=== PATIENT | male | born 1960 | race Caucasian/White ===

== ENCOUNTER 2018-09-23 17:46 | Inpatient (IN) | payer MEDICAID, OTHER ==
[~2018-09-23] VITALS: Ht 177.8 cm; Wt 73.6 kg
[~2018-09-23 17:46] MED LIST: ATEN100T PO; GABA-533 PO; LEVE500T53 PO
[2018-09-23 18:57] LABS: BASOPHILS % (AUTO) 0.8 % (0.0-2.0); EOSINOPHILS % (AUTO) 0.5 % (1.0-6.0); HEMATOCRIT 42.3 % (41-53); HEMOGLOBIN 13.9 g/dL (13.5-17.5); LYMPHOCYTES # (AUTO) 1.5 K/uL (1.0-4.8); LYMPHOCYTES % (AUTO) 22.2 % (22.0-44.0); MEAN CORPUSCULAR HEMOGLOBIN 30.8 pg (26.0-34.0); MEAN CORPUSCULAR HGB CONC 32.7 G/dL (31.0-37.0); MEAN CORPUSCULAR VOLUME 94 fL (80-100); MONOCYTES # (AUTO) 0.3 K/uL (0.1-1.0); MONOCYTES % (AUTO) 4.9 % (2.0-9.0); NEUTROPHILS # (AUTO) 4.9 K/uL (1.8-7.7); NEUTROPHILS % (AUTO) 71.6 % (40.0-70.0); PLATELET COUNT (AUTO) 336 K/uL (150-450); RED BLOOD CELL COUNT(AUTO) 4.49 MIL/uL (4.50-5.90); RED CELL DISTRIBUTION WIDTH 15.1 % (11.5-14.5)
[2018-09-23 19:09] LABS: ANION GAP 11 mmol/L (8-16); CALCIUM, TOTAL 9.4 mg/dL (8.8-10.5); CARBON DIOXIDE 27 mmol/L (22-29); CHLORIDE 104 mmol/L (98-107); CREATININE 0.83 mg/dL (0.60-1.30); GLOMERULAR FILTR. RATE CALC > 60 mL/min (>60); GLUCOSE,RANDOM 74 mg/dL (70-110); POTASSIUM 3.7 mmol/L (3.5-5.1); SODIUM SERUM 142 mmol/L (136-145); UREA NITROGEN, BLOOD 14 mg/dL (7-18)
[2018-09-23 19:15] LABS: ALANINE AMINOTRANSFERASE 26 U/L (12-78); ALBUMIN 3.6 g/dL (3.4-5.0); ALKALINE PHOSPHATASE 100 U/L (46-116); ASPARTATE AMINOTRANSFERASE 51 U/L (15-37); BILIRUBIN,TOTAL 0.4 mg/dL (0.1-1.0); TOTAL PROTEIN, SERUM 8.2 g/dL (6.4-8.2)
[2018-09-23 20:48] LABS: AMPHET/METH SCREEN,URINE NEGATIVE (NEGATIVE); BARBITURATE SCREEN, URINE NEGATIVE (NEGATIVE); BENZODIAZEPINES SCREEN,URINE POSITIVE (NEGATIVE); CANNABINOID SCREEN,URINE NEGATIVE (NEGATIVE); COCAINE SCREEN,URINE NEGATIVE (NEGATIVE); METHADONE SCREEN, URINE NEGATIVE (NEGATIVE); OPIATE SCREEN,URINE POSITIVE (NEGATIVE)
[2018-09-23 20:53] LABS: PHENCYCLIDINE SCREEN,URINE NEGATIVE (NEGATIVE)
[2018-09-24] MEDS ORDERED: ChlordiazePOXIDE HCL 25 MG CAPSULE PO ONE (09:15)
[2018-09-24] MEDS ORDERED: MAGNESIUM SULFATE 2 GM, MVI, ADULT NO.1 WITH VIT K 10 ML, THIAMINE HCL 100 MG, FOLIC AC... IV ONE ×5 (09:15)
[2018-09-24] MEDS ORDERED: SODIUM CHLORIDE 0.9% 1,000 ML IV ONE (09:15)
[2018-09-24] MEDS ORDERED: LevETIRAcetam 1,000 MG in DEXTROSE 5%-WATER 100 ML IV ONE (09:45)
[2018-09-24] MEDS ORDERED: HYDROCODONE/ACETAMINOPHEN 5-325 MG TABLET PO ONE (09:45)
[2018-09-24] MEDS ORDERED: GABAPENTIN 100 MG CAPSULE PO ONE (09:45)
[2018-09-24] MEDS ORDERED: ZOLPIDEM TARTRATE 10 MG TABLET PO PRN (12:15)
[2018-09-24] MEDS ORDERED: LORazepam 2 MG TABLET PO PRN ×2 (12:15→14:45)
[2018-09-24 14:36] VITALS: BP 141/99
[2018-09-24 14:42] VITALS: BP 141/99
[2018-09-24] MEDS ORDERED: LOPERAMIDE HCL 2 MG CAPSULE PO PRN (14:45)
[2018-09-24] MEDS ORDERED: CYANOCOBALAMIN 1,000 MCG/ML VIAL IM ONE (16:00)
[2018-09-24 16:33] VITALS: BP 141/88
[2018-09-24] MEDS: MULTIVITAMINS WITH MINERALS, THERAPEUTIC TABLET PO SCH (16:42)
[2018-09-24] MEDS: LevETIRAcetam 500 MG TABLET PO SCH (16:42)
[2018-09-24] MEDS: THIAMINE HCL 100 MG TABLET PO SCH (16:42)
[2018-09-24] MEDS: GABAPENTIN 400 MG CAPSULE PO SCH ×2 (16:42→20:36)
[2018-09-24] MEDS: FOLIC ACID 1 MG TABLET PO SCH (16:42)
[2018-09-24 16:44] VITALS: BP 141/88
[2018-09-24 18:33] VITALS: BP 146/84
[2018-09-25 02:44] VITALS: BP 151/101
[2018-09-25 06:36] VITALS: BP 133/98
[2018-09-25] MEDS ORDERED: LORazepam 2 MG TABLET PO PRN (07:00)
[2018-09-25 07:29] LABS: CHOL/HDL RATIO 1.8 (4.2-7.3); FREE T4 (FREE THYROXINE) 1.08 ng/dL (0.76-1.46); THYROID STIMULATING HORMONE 0.83 uIU/mL (0.36-3.74)
[2018-09-25] MEDS: LORazepam 2 MG TABLET PO SCH ×4 (08:24→21:24)
[2018-09-25] MEDS: LevETIRAcetam 500 MG TABLET PO SCH (08:24)
[2018-09-25] MEDS: MULTIVITAMINS WITH MINERALS, THERAPEUTIC TABLET PO SCH (08:24)
[2018-09-25] MEDS: GABAPENTIN 400 MG CAPSULE PO SCH ×4 (08:24→21:24)
[2018-09-25] MEDS: THIAMINE HCL 100 MG TABLET PO SCH ×2 (08:25→16:40)
[2018-09-25] MEDS: ATENOLOL 100 MG TABLET PO SCH (08:38)
[2018-09-25] MEDS: ESCITALOPRAM OXALATE 10 MG TABLET PO SCH (08:40)
[2018-09-25] MEDS: FOLIC ACID 1 MG TABLET PO SCH (08:40)
[2018-09-25 10:35] VITALS: BP 117/77
[2018-09-25 10:38] VITALS: BP 117/71
[2018-09-25 14:45] VITALS: BP 149/94
[2018-09-25 16:11] VITALS: BP 140/88
[2018-09-26 03:13] VITALS: BP 139/95
[2018-09-26] MEDS: THIAMINE HCL 100 MG TABLET PO SCH ×2 (08:36→17:29)
[2018-09-26] MEDS: GABAPENTIN 400 MG CAPSULE PO SCH ×4 (08:36→20:45)
[2018-09-26] MEDS: MULTIVITAMINS WITH MINERALS, THERAPEUTIC TABLET PO SCH (08:36)
[2018-09-26] MEDS: FOLIC ACID 1 MG TABLET PO SCH (08:37)
[2018-09-26] MEDS: LevETIRAcetam 500 MG TABLET PO SCH (08:37)
[2018-09-26] MEDS: LORazepam 2 MG TABLET PO SCH ×4 (08:37→20:47)
[2018-09-26] MEDS: ESCITALOPRAM OXALATE 10 MG TABLET PO SCH (08:37)
[2018-09-26] MEDS: ATENOLOL 100 MG TABLET PO SCH (08:37)
[2018-09-26 11:00] VITALS: BP 142/89
[2018-09-26 11:08] VITALS: BP 142/89
[2018-09-26 16:57] VITALS: BP 119/97
[2018-09-26 16:59] VITALS: BP 119/97
[2018-09-27] MEDS ORDERED: LORazepam 1 MG TABLET PO PRN (07:00)
[2018-09-27 09:05] VITALS: BP 142/87
[2018-09-27 09:06] VITALS: BP 142/87
[2018-09-27] MEDS: ATENOLOL 100 MG TABLET PO SCH (09:31)
[2018-09-27] MEDS: ESCITALOPRAM OXALATE 10 MG TABLET PO SCH (09:31)
[2018-09-27] MEDS: THIAMINE HCL 100 MG TABLET PO SCH ×2 (09:31→16:37)
[2018-09-27] MEDS: MULTIVITAMINS WITH MINERALS, THERAPEUTIC TABLET PO SCH (09:32)
[2018-09-27] MEDS: FOLIC ACID 1 MG TABLET PO SCH (09:32)
[2018-09-27] MEDS: LORazepam 1 MG TABLET PO SCH ×4 (09:33→20:34)
[2018-09-27] MEDS: GABAPENTIN 400 MG CAPSULE PO SCH ×4 (09:33→21:40)
[2018-09-27] MEDS: LevETIRAcetam 500 MG TABLET PO SCH (09:33)
[2018-09-27 16:35] VITALS: BP 147/89
[2018-09-27] MEDS ORDERED: ONDANSETRON HCL 4 MG TABLET PO PRN (21:00)
[2018-09-27] MEDS ORDERED: ACETAMINOPHEN 325 MG TABLET PO PRN (21:00)
[2018-09-27] MEDS ORDERED: MAGNESIUM HYDROXIDE SUSPENSION 30 ML UDCUP PO PRN (21:00)
[2018-09-27] MEDS ORDERED: LOPERAMIDE HCL 2 MG CAPSULE PO PRN (21:00)
[2018-09-27] MEDS ORDERED: CloNIDine HCL 0.1 MG TABLET PO PRN (21:00)
[2018-09-27] MEDS ORDERED: BACITRACIN 28.4 GM OINTMENT TP PRN (21:00)
[2018-09-27] MEDS ORDERED: BENZOCAINE/MENTHOL LOZENGE MM PRN (21:00)
[2018-09-27] MEDS ORDERED: ALBUTEROL SULFATE HFA 90 MCG/PUFF 8 GM INHALER IH PRN (21:00)
[2018-09-27] MEDS ORDERED: MAG HYDROX/AL HYDROX/SIMETH ES 30 ML SUSPENSION UDCUP PO PRN (21:00)
[2018-09-27] MEDS ORDERED: PETROLATUM,WHITE 28 GM JELLY TP PRN (21:00)
[2018-09-27 21:40] VITALS: BP 128/74
[2018-09-27] MEDS: IBUPROFEN 600 MG TABLET PO PRN (21:40)
[2018-09-28 06:58] VITALS: BP 124/84
[2018-09-28] MEDS ORDERED: LORazepam 1 MG TABLET PO PRN (07:00)
[2018-09-28] MEDS: MULTIVITAMINS WITH MINERALS, THERAPEUTIC TABLET PO SCH (08:05)
[2018-09-28] MEDS: ATENOLOL 100 MG TABLET PO SCH (08:05)
[2018-09-28] MEDS: GABAPENTIN 400 MG CAPSULE PO SCH ×4 (08:06→20:16)
[2018-09-28] MEDS: OMEPRAZOLE 20 MG CAPSULE PO SCH (08:06)
[2018-09-28] MEDS: LevETIRAcetam 500 MG TABLET PO SCH (08:07)
[2018-09-28] MEDS: ESCITALOPRAM OXALATE 10 MG TABLET PO SCH (08:07)
[2018-09-28] MEDS: FOLIC ACID 1 MG TABLET PO SCH (08:08)
[2018-09-28] MEDS: THIAMINE HCL 100 MG TABLET PO SCH ×2 (08:08→16:04)
[2018-09-28 08:10] VITALS: BP 149/92
[2018-09-28] MEDS: IBUPROFEN 600 MG TABLET PO PRN (08:10)
[2018-09-28] MEDS: DOCUSATE SODIUM 100 MG CAPSULE PO SCH (09:00)
[2018-09-28 12:43] VITALS: BP 144/87
[2018-09-28 16:00] VITALS: BP 125/75
[2018-09-29] MEDS: FOLIC ACID 1 MG TABLET PO SCH (08:53)
[2018-09-29] MEDS: LevETIRAcetam 500 MG TABLET PO SCH (08:53)
[2018-09-29] MEDS: GABAPENTIN 400 MG CAPSULE PO SCH ×4 (08:53→20:39)
[2018-09-29] MEDS: ATENOLOL 100 MG TABLET PO SCH (08:54)
[2018-09-29] MEDS: ESCITALOPRAM OXALATE 10 MG TABLET PO SCH (08:54)
[2018-09-29] MEDS: THIAMINE HCL 100 MG TABLET PO SCH ×2 (08:55→16:14)
[2018-09-29] MEDS: OMEPRAZOLE 20 MG CAPSULE PO SCH (08:56)
[2018-09-29] MEDS: MULTIVITAMINS WITH MINERALS, THERAPEUTIC TABLET PO SCH (08:56)
[2018-09-29] MEDS: HALOPERIDOL 5 MG TABLET PO PRN ×2 (09:00→16:14)
[2018-09-29] MEDS: DOCUSATE SODIUM 100 MG CAPSULE PO SCH (09:00)
[2018-09-29 09:11] VITALS: BP 134/90
[2018-09-29 09:13] VITALS: BP 134/90
[2018-09-29] MEDS ORDERED: ESCI10TA PO (18:59)
[2018-09-29 19:20] VITALS: BP 127/78
[2018-09-29] MEDS ORDERED: FOLI1 PO (19:22)
[2018-09-29] MEDS ORDERED: THIA100T67 PO (19:23)
[2018-09-29] MEDS ORDERED: MULT-248 PO (19:23)
[2018-09-29] MEDS ORDERED: DSS100 PO (19:26)
[2018-09-29] MEDS ORDERED: OMEP20 PO (19:27)
== END 2018-09-29 20:52 | DRG 751 ==
LOC: EMS 17:49 → 3EX 09-24 13:14
DX: F33.2 Major depressive disorder, recurrent severe without psychotic features (principal); R45.851 Suicidal ideations; G62.9 Polyneuropathy, unspecified; G89.29 Other chronic pain; F41.9 Anxiety disorder, unspecified; M54.9 Dorsalgia, unspecified; F10.20 Alcohol dependence, uncomplicated; M51.36 Other intervertebral disc degeneration, lumbar region; I10 Essential (primary) hypertension; G40.909 Epilepsy, unspecified, not intractable, without status epilepticus; G47.00 Insomnia, unspecified; K59.00 Constipation, unspecified; Y90.6 Blood alcohol level of 120-199 mg/100 ml; Z89.512 Acquired absence of left leg below knee; Z86.73 Personal history of transient ischemic attack (TIA), and cerebral infarction without residual deficits; Z79.899 Other long term (current) drug therapy; Z91.5 Personal history of self-harm; Z59.0 Homelessness
CPT/HCPCS: 84439; 84443; 96365; 96366; 97110; 97116; 97162; 97166; 97530; 97535; G0378; G0480; J0712; J3411; J3420; J3475; J3490; J7030; J7060

== ENCOUNTER 2019-01-11 19:39 | Inpatient (IN) | payer MEDICAID, OTHER ==
[~2019-01-11] VITALS: Ht 177.8 cm; Wt 67.5 kg
[~2019-01-11 19:39] MED LIST changes: +DSS100 PO; +ESCI10TA PO; +FOLI1 PO; +MULT-248 PO; +OMEP20 PO; +THIA100T67 PO
[2019-01-11] MEDS ORDERED: ATEN100T PO (19:54)
[2019-01-11 21:06] LABS: BASOPHILS % (AUTO) 0.7 % (0.0-2.0); EOSINOPHILS % (AUTO) 0.6 % (1.0-6.0); HEMATOCRIT 45.3 % (41-53); HEMOGLOBIN 15.1 g/dL (13.5-17.5); LYMPHOCYTES # (AUTO) 2.1 K/uL (1.0-4.8); LYMPHOCYTES % (AUTO) 43.6 % (22.0-44.0); MEAN CORPUSCULAR HEMOGLOBIN 30.2 pg (26.0-34.0); MEAN CORPUSCULAR HGB CONC 33.4 G/dL (31.0-37.0); MEAN CORPUSCULAR VOLUME 90 fL (80-100); MONOCYTES # (AUTO) 0.4 K/uL (0.1-1.0); MONOCYTES % (AUTO) 7.9 % (2.0-9.0); NEUTROPHILS # (AUTO) 2.3 K/uL (1.8-7.7); NEUTROPHILS % (AUTO) 47.2 % (40.0-70.0); RED BLOOD CELL COUNT(AUTO) 5.02 MIL/uL (4.50-5.90); RED CELL DISTRIBUTION WIDTH 15.2 % (11.5-14.5)
[2019-01-11 21:19] LABS: ANION GAP 9 mmol/L (8-16); CALCIUM, TOTAL 8.3 mg/dL (8.8-10.5); CARBON DIOXIDE 29 mmol/L (22-29); CHLORIDE 101 mmol/L (98-107); CREATININE 1.09 mg/dL (0.60-1.30); GLOMERULAR FILTR. RATE CALC > 60 mL/min (>60); GLUCOSE,RANDOM 92 mg/dL (70-110); POTASSIUM 3.4 mmol/L (3.5-5.1); SODIUM SERUM 139 mmol/L (136-145); UREA NITROGEN, BLOOD 11 mg/dL (7-18)
[2019-01-11 21:20] LABS: AMPHET/METH SCREEN,URINE NEGATIVE (NEGATIVE); BARBITURATE SCREEN, URINE NEGATIVE (NEGATIVE); BENZODIAZEPINES SCREEN,URINE NEGATIVE (NEGATIVE); CANNABINOID SCREEN,URINE NEGATIVE (NEGATIVE); COCAINE SCREEN,URINE NEGATIVE (NEGATIVE); METHADONE SCREEN, URINE NEGATIVE (NEGATIVE); OPIATE SCREEN,URINE NEGATIVE (NEGATIVE)
[2019-01-11 21:25] LABS: ALANINE AMINOTRANSFERASE 45 U/L (12-78); ALBUMIN 3.8 g/dL (3.4-5.0); ALKALINE PHOSPHATASE 119 U/L (46-116); ASPARTATE AMINOTRANSFERASE 82 U/L (15-37); BILIRUBIN,TOTAL 0.8 mg/dL (0.1-1.0); TOTAL PROTEIN, SERUM 7.5 g/dL (6.4-8.2)
[2019-01-11 21:29] LABS: PHENCYCLIDINE SCREEN,URINE NEGATIVE (NEGATIVE)
[2019-01-11 21:57] LABS: PLATELET COUNT (AUTO) 94 K/uL (150-450)
[2019-01-12 05:46] VITALS: BP 142/92
[2019-01-12] MEDS: LORazepam 2 MG TABLET PO PRN ×4 (05:56→21:13)
[2019-01-12] MEDS ORDERED: PNEUMOCOCCAL VACCINE POLYVALENT 0.5 ML VIAL [PPSV23] IM ONE (06:00)
[2019-01-12] MEDS ORDERED: LOPERAMIDE HCL 2 MG CAPSULE PO PRN ×2 (06:15→18:45)
[2019-01-12] MEDS ORDERED: ONDANSETRON HCL 4 MG TABLET PO PRN ×2 (06:15→18:45)
[2019-01-12] MEDS ORDERED: ACETAMINOPHEN 325 MG TABLET PO PRN ×2 (06:15→18:45)
[2019-01-12] MEDS ORDERED: DOCUSATE SODIUM 100 MG CAPSULE PO PRN ×2 (06:15→18:45)
[2019-01-12] MEDS ORDERED: IBUPROFEN 400 MG TABLET PO PRN (06:15)
[2019-01-12] MEDS ORDERED: MAGNESIUM HYDROXIDE SUSPENSION 30 ML UDCUP PO PRN ×2 (06:15→18:45)
[2019-01-12] MEDS ORDERED: GuaiFENesin/D-METHORPHAN [SUGAR-FREE] 200-20MG/10 ML SYRUP UDCUP PO PRN ×2 (06:15→18:45)
[2019-01-12] MEDS ORDERED: MAG HYDROX/AL HYDROX/SIMETH ES 30 ML SUSPENSION UDCUP PO PRN ×2 (06:15→18:45)
[2019-01-12] MEDS ORDERED: PETROLATUM,WHITE 28 GM JELLY TP PRN ×2 (06:15→18:45)
[2019-01-12] MEDS ORDERED: ALBUTEROL SULFATE HFA 90 MCG/PUFF 8 GM INHALER IH PRN ×2 (06:15→18:45)
[2019-01-12] MEDS ORDERED: CloNIDine HCL 0.1 MG TABLET PO PRN ×2 (06:15→18:45)
[2019-01-12] MEDS ORDERED: NICOTINE 14 MG/24 HOUR PATCH TD PRN ×2 (06:15→18:45)
[2019-01-12] MEDS ORDERED: LevETIRAcetam 500 MG TABLET PO SCH (09:00)
[2019-01-12] MEDS ORDERED: ATENOLOL 100 MG TABLET PO SCH (09:00)
[2019-01-12 09:49] VITALS: BP 126/74
[2019-01-12] MEDS: GABAPENTIN 400 MG CAPSULE PO SCH ×4 (10:03→21:11)
[2019-01-12] MEDS ORDERED: DOCU-275 PO (12:48)
[2019-01-12] MEDS: ESCITALOPRAM OXALATE 20 MG TABLET PO SCH (12:58)
[2019-01-12 16:30] VITALS: BP 107/78
[2019-01-12] MEDS: TraZODone HCL 50 MG TABLET PO SCH (21:11)
[2019-01-13 07:28] LABS: BASOPHILS % (AUTO) 0.3 % (0.0-2.0); EOSINOPHILS % (AUTO) 0.9 % (1.0-6.0); HEMATOCRIT 42.6 % (41-53); HEMOGLOBIN 14.2 g/dL (13.5-17.5); LYMPHOCYTES # (AUTO) 1.1 K/uL (1.0-4.8); LYMPHOCYTES % (AUTO) 19.6 % (22.0-44.0); MEAN CORPUSCULAR HEMOGLOBIN 30.4 pg (26.0-34.0); MEAN CORPUSCULAR HGB CONC 33.4 G/dL (31.0-37.0); MEAN CORPUSCULAR VOLUME 91 fL (80-100); MONOCYTES # (AUTO) 0.4 K/uL (0.1-1.0); MONOCYTES % (AUTO) 7.9 % (2.0-9.0); NEUTROPHILS # (AUTO) 4.1 K/uL (1.8-7.7); NEUTROPHILS % (AUTO) 71.3 % (40.0-70.0); PLATELET COUNT (AUTO) 62 K/uL (150-450); RED BLOOD CELL COUNT(AUTO) 4.69 MIL/uL (4.50-5.90); RED CELL DISTRIBUTION WIDTH 14.7 % (11.5-14.5)
[2019-01-13 07:38] LABS: HEMOGLOBIN A1C 5.7 % (4.5-6.2)
[2019-01-13 07:56] LABS: ALANINE AMINOTRANSFERASE 46 U/L (12-78); ALBUMIN 3.3 g/dL (3.4-5.0); ALKALINE PHOSPHATASE 151 U/L (46-116); ANION GAP 6 mmol/L (8-16); ASPARTATE AMINOTRANSFERASE 54 U/L (15-37); BILIRUBIN,TOTAL 0.7 mg/dL (0.1-1.0); CALCIUM, TOTAL 8.7 mg/dL (8.8-10.5); CARBON DIOXIDE 30 mmol/L (22-29); CHLORIDE 107 mmol/L (98-107); CHOL/HDL RATIO 1.5 (4.2-7.3); CHOLESTEROL 171 mg/dL (131-200); CREATININE 1.14 mg/dL (0.60-1.30); GLOMERULAR FILTR. RATE CALC > 60 mL/min (>60); GLUCOSE,RANDOM 94 mg/dL (70-110); HDL CHOLESTEROL 111 mg/dL (40-60); LDL CHOL (CALC.) 47 mg/dL (0-130); POTASSIUM 3.6 mmol/L (3.5-5.1); SODIUM SERUM 143 mmol/L (136-145); THYROID STIMULATING HORMONE 0.68 uIU/mL (0.36-3.74); TOTAL PROTEIN, SERUM 6.9 g/dL (6.4-8.2); TRIGLYCERIDES 63 mg/dL (15-150); UREA NITROGEN, BLOOD 11 mg/dL (7-18)
[2019-01-13 08:30] VITALS: BP 139/95
[2019-01-13] MEDS: OMEPRAZOLE 20 MG CAPSULE PO SCH (09:29)
[2019-01-13] MEDS: DOCUSATE SODIUM 100 MG CAPSULE PO SCH (09:29)
[2019-01-13] MEDS: ATENOLOL 100 MG TABLET PO SCH (09:29)
[2019-01-13] MEDS: ESCITALOPRAM OXALATE 20 MG TABLET PO SCH (09:29)
[2019-01-13] MEDS: MULTIVITAMINS WITH MINERALS, THERAPEUTIC TABLET PO SCH (09:30)
[2019-01-13] MEDS: FOLIC ACID 1 MG TABLET PO SCH (09:30)
[2019-01-13] MEDS: GABAPENTIN 400 MG CAPSULE PO SCH ×4 (09:30→20:27)
[2019-01-13] MEDS: LevETIRAcetam 500 MG TABLET PO SCH (09:30)
[2019-01-13] MEDS: LORazepam 2 MG TABLET PO PRN ×3 (09:35→17:49)
[2019-01-13] MEDS: IBUPROFEN 400 MG TABLET PO PRN (16:09)
[2019-01-13 16:11] VITALS: BP 132/92
[2019-01-13] MEDS: TraZODone HCL 50 MG TABLET PO SCH (20:27)
[2019-01-13] MEDS: ZOLPIDEM TARTRATE 10 MG TABLET PO PRN (20:58)
[2019-01-13] MEDS: HALOPERIDOL 5 MG TABLET PO PRN (20:58)
[2019-01-14] MEDS: OMEPRAZOLE 20 MG CAPSULE PO SCH (09:06)
[2019-01-14] MEDS: MULTIVITAMINS WITH MINERALS, THERAPEUTIC TABLET PO SCH (09:06)
[2019-01-14] MEDS: ESCITALOPRAM OXALATE 20 MG TABLET PO SCH (09:06)
[2019-01-14] MEDS: ATENOLOL 100 MG TABLET PO SCH (09:06)
[2019-01-14] MEDS: DOCUSATE SODIUM 100 MG CAPSULE PO SCH (09:06)
[2019-01-14] MEDS: LevETIRAcetam 500 MG TABLET PO SCH (09:06)
[2019-01-14] MEDS: GABAPENTIN 400 MG CAPSULE PO SCH ×4 (09:06→20:28)
[2019-01-14] MEDS: FOLIC ACID 1 MG TABLET PO SCH (09:06)
[2019-01-14] MEDS: LORazepam 2 MG TABLET PO PRN ×2 (13:04→18:39)
[2019-01-14 17:09] VITALS: BP 118/89
[2019-01-14] MEDS: TraZODone HCL 50 MG TABLET PO SCH (20:28)
[2019-01-15] MEDS: ZOLPIDEM TARTRATE 10 MG TABLET PO PRN (00:08)
[2019-01-15] MEDS: LORazepam 2 MG TABLET PO PRN ×4 (00:08→16:55)
[2019-01-15 01:30] VITALS: BP 110/87
[2019-01-15] MEDS: DOCUSATE SODIUM 100 MG CAPSULE PO SCH (09:19)
[2019-01-15] MEDS: LevETIRAcetam 500 MG TABLET PO SCH (09:19)
[2019-01-15] MEDS: ESCITALOPRAM OXALATE 20 MG TABLET PO SCH (09:19)
[2019-01-15] MEDS: MULTIVITAMINS WITH MINERALS, THERAPEUTIC TABLET PO SCH (09:20)
[2019-01-15] MEDS: ATENOLOL 100 MG TABLET PO SCH (09:20)
[2019-01-15] MEDS: OMEPRAZOLE 20 MG CAPSULE PO SCH (09:20)
[2019-01-15] MEDS: FOLIC ACID 1 MG TABLET PO SCH (09:20)
[2019-01-15] MEDS: GABAPENTIN 400 MG CAPSULE PO SCH ×4 (09:21→21:25)
[2019-01-15 09:47] VITALS: BP 149/85
[2019-01-15 16:41] VITALS: BP 152/91
[2019-01-15] MEDS: TraZODone HCL 50 MG TABLET PO SCH (21:25)
[2019-01-16] MEDS: LORazepam 2 MG TABLET PO PRN ×2 (00:13→09:34)
[2019-01-16] MEDS: ZOLPIDEM TARTRATE 10 MG TABLET PO PRN (00:13)
[2019-01-16 00:18] VITALS: BP 134/96
[2019-01-16] MEDS: ATENOLOL 100 MG TABLET PO SCH (09:31)
[2019-01-16 09:33] VITALS: BP 139/95
[2019-01-16] MEDS: MULTIVITAMINS WITH MINERALS, THERAPEUTIC TABLET PO SCH (09:34)
[2019-01-16] MEDS: ESCITALOPRAM OXALATE 20 MG TABLET PO SCH (09:34)
[2019-01-16] MEDS: HALOPERIDOL 5 MG TABLET PO PRN (09:34)
[2019-01-16] MEDS: FOLIC ACID 1 MG TABLET PO SCH (09:35)
[2019-01-16] MEDS: OMEPRAZOLE 20 MG CAPSULE PO SCH (09:35)
[2019-01-16] MEDS: DOCUSATE SODIUM 100 MG CAPSULE PO SCH (09:35)
[2019-01-16] MEDS: GABAPENTIN 400 MG CAPSULE PO SCH ×4 (09:35→20:11)
[2019-01-16] MEDS: LevETIRAcetam 500 MG TABLET PO SCH (09:35)
[2019-01-16 09:36] VITALS: BP 129/95
[2019-01-16] MEDS: IBUPROFEN 400 MG TABLET PO PRN (09:36)
[2019-01-16 16:30] VITALS: BP 120/88
[2019-01-16] MEDS: TraZODone HCL 50 MG TABLET PO SCH (20:11)
[2019-01-17 05:39] VITALS: BP 124/86
[2019-01-17 08:30] VITALS: BP 121/69
[2019-01-17] MEDS: ATENOLOL 100 MG TABLET PO SCH (09:07)
[2019-01-17] MEDS: ESCITALOPRAM OXALATE 20 MG TABLET PO SCH (09:09)
[2019-01-17] MEDS: OMEPRAZOLE 20 MG CAPSULE PO SCH (09:10)
[2019-01-17] MEDS: GABAPENTIN 400 MG CAPSULE PO SCH ×4 (09:10→20:53)
[2019-01-17] MEDS: MULTIVITAMINS WITH MINERALS, THERAPEUTIC TABLET PO SCH (09:10)
[2019-01-17] MEDS: LevETIRAcetam 500 MG TABLET PO SCH (09:10)
[2019-01-17] MEDS: DOCUSATE SODIUM 100 MG CAPSULE PO SCH (09:10)
[2019-01-17] MEDS: FOLIC ACID 1 MG TABLET PO SCH (09:10)
[2019-01-17] MEDS: LORazepam 2 MG TABLET PO PRN ×2 (09:13→13:59)
[2019-01-17 16:30] VITALS: BP 110/76
[2019-01-17] MEDS: TraZODone HCL 50 MG TABLET PO SCH (20:53)
[2019-01-18] MEDS: ESCITALOPRAM OXALATE 20 MG TABLET PO SCH (08:26)
[2019-01-18] MEDS: DOCUSATE SODIUM 100 MG CAPSULE PO SCH (08:26)
[2019-01-18] MEDS: LORazepam 2 MG TABLET PO PRN ×2 (08:26→16:29)
[2019-01-18] MEDS: FOLIC ACID 1 MG TABLET PO SCH (08:26)
[2019-01-18] MEDS: ATENOLOL 100 MG TABLET PO SCH (08:27)
[2019-01-18] MEDS: OMEPRAZOLE 20 MG CAPSULE PO SCH (08:27)
[2019-01-18] MEDS: MULTIVITAMINS WITH MINERALS, THERAPEUTIC TABLET PO SCH (08:27)
[2019-01-18] MEDS: LevETIRAcetam 500 MG TABLET PO SCH (08:27)
[2019-01-18] MEDS: GABAPENTIN 400 MG CAPSULE PO SCH ×4 (08:27→20:14)
[2019-01-18 10:23] VITALS: BP 146/85
[2019-01-18 16:30] VITALS: BP 131/91
[2019-01-18] MEDS: TraZODone HCL 50 MG TABLET PO SCH (20:14)
[2019-01-19] MEDS: OMEPRAZOLE 20 MG CAPSULE PO SCH (08:26)
[2019-01-19] MEDS: DOCUSATE SODIUM 100 MG CAPSULE PO SCH (08:26)
[2019-01-19] MEDS: ESCITALOPRAM OXALATE 20 MG TABLET PO SCH (08:26)
[2019-01-19] MEDS: FOLIC ACID 1 MG TABLET PO SCH (08:26)
[2019-01-19] MEDS: LevETIRAcetam 500 MG TABLET PO SCH (08:26)
[2019-01-19] MEDS: GABAPENTIN 400 MG CAPSULE PO SCH ×3 (08:26→17:07)
[2019-01-19] MEDS: ATENOLOL 100 MG TABLET PO SCH (08:26)
[2019-01-19] MEDS: MULTIVITAMINS WITH MINERALS, THERAPEUTIC TABLET PO SCH (08:26)
[2019-01-19] MEDS: LORazepam 2 MG TABLET PO PRN ×2 (08:30→17:07)
[2019-01-19 09:07] VITALS: BP 113/79
[2019-01-19] MEDS ORDERED: GABA-533 PO ×2 (19:06→19:08)
[2019-01-19] MEDS ORDERED: ESCI5TAB PO (19:11)
[2019-01-19] MEDS ORDERED: ESCI20TA PO ×3 (19:11→19:13)
[2019-01-19] MEDS ORDERED: TRAZ-252 PO (19:29)
== END 2019-01-19 21:15 | DRG 751 ==
LOC: EMS 19:40 → 3EI 01-12 04:39
PROVIDERS: ADMIT Psychiatry & Neurology Psychiatry; ATTEND Psychiatry & Neurology Psychiatry
DX: F33.2 Major depressive disorder, recurrent severe without psychotic features (principal); D69.6 Thrombocytopenia, unspecified; R45.851 Suicidal ideations; E87.6 Hypokalemia; G40.909 Epilepsy, unspecified, not intractable, without status epilepticus; I10 Essential (primary) hypertension; K21.9 Gastro-esophageal reflux disease without esophagitis; Y90.0 Blood alcohol level of less than 20 mg/100 ml; G62.9 Polyneuropathy, unspecified; M47.816 Spondylosis without myelopathy or radiculopathy, lumbar region; Z86.73 Personal history of transient ischemic attack (TIA), and cerebral infarction without residual deficits; Z89.512 Acquired absence of left leg below knee; Z91.19 Patient's noncompliance with other medical treatment and regimen
CPT/HCPCS: 83036; 84443; 97162; 97530; G0480

== ENCOUNTER 2019-11-10 19:41 | Inpatient (IN) | payer MEDICAID ==
[~2019-11-10] VITALS: Ht 177.8 cm; Wt 75.8 kg
[~2019-11-10 19:41] MED LIST changes: -ATEN100T PO; +ATEN100T92 PO; +DOCU-275 PO; -DSS100 PO; -ESCI10TA PO; +ESCI20TA87 PO; +FOLI-130 PO; -FOLI1 PO; -THIA100T67 PO; +TRAZ-252 PO
[2019-11-10] MEDS ORDERED: LORA-999 PO (20:14)
[2019-11-10] MEDS ORDERED: HYDR-4455 PO (20:14)
[2019-11-10 20:15] LABS: BASOPHILS % (AUTO) 0.5 % (0.0-2.0); EOSINOPHILS % (AUTO) 0.2 % (1.0-6.0); HEMATOCRIT 43.1 % (41-53); HEMOGLOBIN 14.4 g/dL (13.5-17.5); LYMPHOCYTES # (AUTO) 1.3 K/uL (1.0-4.8); LYMPHOCYTES % (AUTO) 11.1 % (22.0-44.0); MEAN CORPUSCULAR HGB CONC 33.3 G/dL (31.0-37.0); MEAN CORPUSCULAR VOLUME 93 fL (80-100); MONOCYTES # (AUTO) 0.5 K/uL (0.1-1.0); MONOCYTES % (AUTO) 4.3 % (2.0-9.0); NEUTROPHILS % (AUTO) 83.9 % (40.0-70.0); PLATELET COUNT (AUTO) 171 K/uL (150-450); RED BLOOD CELL COUNT(AUTO) 4.64 MIL/uL (4.50-5.90); RED CELL DISTRIBUTION WIDTH 13.4 % (11.5-14.5)
[2019-11-10 20:24] LABS: ANION GAP 14 mmol/L (8-16); CALCIUM, TOTAL 9.1 mg/dL (8.8-10.5); CARBON DIOXIDE 26 mmol/L (22-29); CHLORIDE 100 mmol/L (98-107); CREATININE 0.79 mg/dL (0.60-1.30); GLOMERULAR FILTR. RATE CALC > 60 mL/min (>60); GLUCOSE,RANDOM 95 mg/dL (70-110); POTASSIUM 3.8 mmol/L (3.5-5.1); SODIUM SERUM 140 mmol/L (136-145); UREA NITROGEN, BLOOD 23 mg/dL (7-18)
[2019-11-10 20:29] LABS: ALANINE AMINOTRANSFERASE 28 U/L (12-78); ALKALINE PHOSPHATASE 99 U/L (46-116); ASPARTATE AMINOTRANSFERASE 36 U/L (15-37); BILIRUBIN,TOTAL 1.3 mg/dL (0.1-1.0); TOTAL PROTEIN, SERUM 7.9 g/dL (6.4-8.2)
[2019-11-11] MEDS: ZOLPIDEM TARTRATE 10 MG TABLET PO PRN (00:35)
[2019-11-11 01:20] VITALS: BP 148/96
[2019-11-11] MEDS ORDERED: NICOTINE 14 MG/24 HOUR PATCH TD PRN (05:30)
[2019-11-11] MEDS ORDERED: ALBUTEROL SULFATE HFA 90 MCG/PUFF 8 GM INHALER IH PRN (05:30)
[2019-11-11] MEDS ORDERED: ACETAMINOPHEN 325 MG TABLET PO PRN (05:30)
[2019-11-11] MEDS ORDERED: CloNIDine HCL 0.1 MG TABLET PO PRN (05:30)
[2019-11-11] MEDS ORDERED: DOCUSATE SODIUM 100 MG CAPSULE PO PRN (05:30)
[2019-11-11] MEDS ORDERED: ONDANSETRON HCL 4 MG TABLET PO PRN (05:30)
[2019-11-11] MEDS ORDERED: LOPERAMIDE HCL 2 MG CAPSULE PO PRN (05:30)
[2019-11-11] MEDS ORDERED: PETROLATUM,WHITE 28 GM JELLY TP PRN (05:30)
[2019-11-11] MEDS ORDERED: MAGNESIUM HYDROXIDE SUSPENSION 30 ML UDCUP PO PRN (05:30)
[2019-11-11] MEDS ORDERED: IBUPROFEN 400 MG TABLET PO PRN (05:30)
[2019-11-11] MEDS ORDERED: MAG HYDROX/AL HYDROX/SIMETH ES 30 ML SUSPENSION UDCUP PO PRN (05:30)
[2019-11-11] MEDS ORDERED: GuaiFENesin/D-METHORPHAN [SUGAR-FREE] 200-20MG/10 ML SYRUP UDCUP PO PRN (05:30)
[2019-11-11 07:16] LABS: CHOL/HDL RATIO 2.3 (4.2-7.3)
[2019-11-11] MEDS: ATENOLOL 100 MG TABLET PO SCH (08:42)
[2019-11-11] MEDS: LevETIRAcetam 500 MG TABLET PO SCH (08:42)
[2019-11-11 10:27] VITALS: BP 169/86
[2019-11-11] MEDS: SERTRALINE HCL 50 MG TABLET PO SCH (13:11)
[2019-11-11] MEDS: LORazepam 2 MG TABLET PO PRN (13:11)
[2019-11-11] MEDS: OLANZapine 5 MG TABLET PO SCH (16:24)
[2019-11-11] MEDS: GABAPENTIN 400 MG CAPSULE PO SCH ×2 (16:24→20:51)
[2019-11-11 16:29] VITALS: BP 114/77
[2019-11-11] MEDS: TraZODone HCL 50 MG TABLET PO SCH (20:51)
[2019-11-12 08:20] VITALS: BP 118/73
[2019-11-12] MEDS: ATENOLOL 100 MG TABLET PO SCH (10:58)
[2019-11-12] MEDS: SERTRALINE HCL 50 MG TABLET PO SCH (10:58)
[2019-11-12] MEDS: GABAPENTIN 400 MG CAPSULE PO SCH ×4 (10:58→20:45)
[2019-11-12] MEDS: OLANZapine 5 MG TABLET PO SCH ×2 (10:59→16:57)
[2019-11-12] MEDS: LevETIRAcetam 500 MG TABLET PO SCH (10:59)
[2019-11-12] MEDS: HALOPERIDOL 5 MG TABLET PO PRN (11:05)
[2019-11-12] MEDS: LORazepam 2 MG TABLET PO PRN (11:05)
[2019-11-12 16:16] VITALS: BP 115/70
[2019-11-12] MEDS: TraZODone HCL 50 MG TABLET PO SCH (20:45)
[2019-11-13] MEDS: LevETIRAcetam 500 MG TABLET PO SCH (08:48)
[2019-11-13] MEDS: GABAPENTIN 400 MG CAPSULE PO SCH ×4 (08:48→21:02)
[2019-11-13] MEDS: SERTRALINE HCL 50 MG TABLET PO SCH (08:48)
[2019-11-13] MEDS: LORazepam 2 MG TABLET PO PRN (08:48)
[2019-11-13] MEDS: ATENOLOL 100 MG TABLET PO SCH (08:48)
[2019-11-13] MEDS: HALOPERIDOL 5 MG TABLET PO PRN (08:48)
[2019-11-13] MEDS: OLANZapine 5 MG TABLET PO SCH ×2 (08:48→16:09)
[2019-11-13 16:12] VITALS: BP 121/70
[2019-11-13] MEDS: TraZODone HCL 50 MG TABLET PO SCH (21:02)
[2019-11-14 08:12] VITALS: BP 128/78
[2019-11-14] MEDS: LevETIRAcetam 500 MG TABLET PO SCH (08:34)
[2019-11-14] MEDS: HALOPERIDOL 5 MG TABLET PO PRN (08:34)
[2019-11-14] MEDS: SERTRALINE HCL 50 MG TABLET PO SCH (08:34)
[2019-11-14] MEDS: ATENOLOL 100 MG TABLET PO SCH (08:34)
[2019-11-14] MEDS: OLANZapine 5 MG TABLET PO SCH ×2 (08:34→16:23)
[2019-11-14] MEDS: OxyCODONE HCL/ACETAMINOPHEN 5-325 MG TABLET PO PRN (08:35)
[2019-11-14] MEDS: LORazepam 2 MG TABLET PO PRN (08:35)
[2019-11-14] MEDS: GABAPENTIN 400 MG CAPSULE PO SCH ×4 (08:35→20:50)
[2019-11-14] MEDS ORDERED: SERTRALINE HCL 50 MG TABLET PO ONE (11:45)
[2019-11-14 16:26] VITALS: BP 99/58
[2019-11-14] MEDS: TraZODone HCL 50 MG TABLET PO SCH (20:50)
[2019-11-15] MEDS: LORazepam 2 MG TABLET PO PRN ×2 (08:50→16:16)
[2019-11-15] MEDS: OLANZapine 5 MG TABLET PO SCH ×2 (08:50→16:13)
[2019-11-15] MEDS: SERTRALINE HCL 100 MG TABLET PO SCH (08:50)
[2019-11-15] MEDS: GABAPENTIN 400 MG CAPSULE PO SCH ×4 (08:50→20:23)
[2019-11-15] MEDS: LevETIRAcetam 500 MG TABLET PO SCH (08:50)
[2019-11-15] MEDS: ATENOLOL 100 MG TABLET PO SCH (08:50)
[2019-11-15 09:23] VITALS: BP 139/84
[2019-11-15 09:50] VITALS: BP 139/84
[2019-11-15] MEDS: OxyCODONE HCL/ACETAMINOPHEN 5-325 MG TABLET PO PRN (09:53)
[2019-11-15 13:55] VITALS: BP 120/80
[2019-11-15 16:25] VITALS: BP_SYST 121
[2019-11-15] MEDS: TraZODone HCL 50 MG TABLET PO SCH (20:24)
[2019-11-16] MEDS: ATENOLOL 100 MG TABLET PO SCH (08:54)
[2019-11-16] MEDS: LevETIRAcetam 500 MG TABLET PO SCH (08:54)
[2019-11-16] MEDS: GABAPENTIN 400 MG CAPSULE PO SCH ×4 (08:54→21:03)
[2019-11-16] MEDS: LORazepam 2 MG TABLET PO PRN ×2 (08:54→13:36)
[2019-11-16] MEDS: HALOPERIDOL 5 MG TABLET PO PRN (08:54)
[2019-11-16] MEDS: SERTRALINE HCL 100 MG TABLET PO SCH (08:54)
[2019-11-16] MEDS: OLANZapine 5 MG TABLET PO SCH ×2 (08:55→16:11)
[2019-11-16 09:00] VITALS: BP 104/69
[2019-11-16] MEDS: OxyCODONE HCL/ACETAMINOPHEN 5-325 MG TABLET PO PRN (09:00)
[2019-11-16 11:50] VITALS: BP 111/68
[2019-11-16 12:35] VITALS: BP 108/56
[2019-11-16 13:05] VITALS: BP 116/67
[2019-11-16 16:00] VITALS: BP 116/69
[2019-11-16] MEDS: TraZODone HCL 50 MG TABLET PO SCH (21:03)
[2019-11-17] MEDS: ATENOLOL 100 MG TABLET PO SCH (08:47)
[2019-11-17] MEDS: OLANZapine 5 MG TABLET PO SCH ×2 (08:49→16:14)
[2019-11-17] MEDS: LevETIRAcetam 500 MG TABLET PO SCH (08:49)
[2019-11-17] MEDS: GABAPENTIN 400 MG CAPSULE PO SCH ×4 (08:50→21:20)
[2019-11-17] MEDS: LORazepam 2 MG TABLET PO PRN ×2 (08:50→16:14)
[2019-11-17] MEDS: SERTRALINE HCL 100 MG TABLET PO SCH (08:50)
[2019-11-17 09:27] VITALS: BP 118/79
[2019-11-17 16:46] VITALS: BP 110/65
[2019-11-17] MEDS: TraZODone HCL 50 MG TABLET PO SCH (21:20)
[2019-11-18] MEDS: LORazepam 2 MG TABLET PO PRN ×2 (02:56→09:10)
[2019-11-18 02:59] VITALS: BP 132/83
[2019-11-18] MEDS: GABAPENTIN 400 MG CAPSULE PO SCH ×4 (09:03→20:20)
[2019-11-18] MEDS: OLANZapine 5 MG TABLET PO SCH ×2 (09:03→16:17)
[2019-11-18] MEDS: SERTRALINE HCL 100 MG TABLET PO SCH (09:03)
[2019-11-18] MEDS: ATENOLOL 100 MG TABLET PO SCH (09:04)
[2019-11-18] MEDS: LevETIRAcetam 500 MG TABLET PO SCH (09:04)
[2019-11-18 09:31] VITALS: BP 139/77
[2019-11-18] MEDS: OxyCODONE HCL/ACETAMINOPHEN 5-325 MG TABLET PO PRN (11:32)
[2019-11-18 16:27] VITALS: BP 123/76
[2019-11-18] MEDS: TraZODone HCL 50 MG TABLET PO SCH (20:20)
[2019-11-19 06:02] VITALS: BP 112/72
[2019-11-19 08:15] VITALS: BP 107/68
[2019-11-19] MEDS: OLANZapine 5 MG TABLET PO SCH ×2 (09:48→16:41)
[2019-11-19] MEDS: SERTRALINE HCL 100 MG TABLET PO SCH (09:48)
[2019-11-19] MEDS: LevETIRAcetam 500 MG TABLET PO SCH (09:48)
[2019-11-19] MEDS: GABAPENTIN 400 MG CAPSULE PO SCH ×4 (09:49→20:54)
[2019-11-19] MEDS: ATENOLOL 100 MG TABLET PO SCH (09:49)
[2019-11-19] MEDS: LORazepam 2 MG TABLET PO PRN (10:50)
[2019-11-19 16:52] VITALS: BP 116/61
[2019-11-19] MEDS: OxyCODONE HCL/ACETAMINOPHEN 5-325 MG TABLET PO PRN (16:52)
[2019-11-19] MEDS: TraZODone HCL 50 MG TABLET PO SCH (20:54)
[2019-11-20] MEDS: ZOLPIDEM TARTRATE 10 MG TABLET PO PRN (01:03)
[2019-11-20 02:07] VITALS: BP 111/67
[2019-11-20] MEDS: SERTRALINE HCL 100 MG TABLET PO SCH (08:26)
[2019-11-20] MEDS: LevETIRAcetam 500 MG TABLET PO SCH (08:26)
[2019-11-20] MEDS: GABAPENTIN 400 MG CAPSULE PO SCH ×4 (08:26→21:03)
[2019-11-20] MEDS: ATENOLOL 100 MG TABLET PO SCH (08:26)
[2019-11-20] MEDS: LORazepam 2 MG TABLET PO PRN ×2 (08:27→23:48)
[2019-11-20] MEDS: OLANZapine 5 MG TABLET PO SCH ×2 (08:28→16:18)
[2019-11-20 09:03] VITALS: BP 129/67
[2019-11-20] MEDS: OxyCODONE HCL/ACETAMINOPHEN 5-325 MG TABLET PO PRN (13:17)
[2019-11-20 16:05] VITALS: BP 112/43
[2019-11-20] MEDS: TraZODone HCL 50 MG TABLET PO SCH (21:03)
[2019-11-20 23:48] VITALS: BP 127/66
[2019-11-21 09:33] VITALS: BP 132/81
[2019-11-21] MEDS: SERTRALINE HCL 100 MG TABLET PO SCH (10:25)
[2019-11-21] MEDS: ATENOLOL 100 MG TABLET PO SCH (10:25)
[2019-11-21] MEDS: GABAPENTIN 400 MG CAPSULE PO SCH ×4 (10:25→21:19)
[2019-11-21] MEDS: OLANZapine 5 MG TABLET PO SCH ×2 (10:25→16:01)
[2019-11-21] MEDS: LevETIRAcetam 500 MG TABLET PO SCH (10:25)
[2019-11-21] MEDS: LORazepam 2 MG TABLET PO PRN (14:19)
[2019-11-21 17:00] VITALS: BP 108/78
[2019-11-21 17:07] VITALS: BP 108/78
[2019-11-21] MEDS: TraZODone HCL 50 MG TABLET PO SCH (21:19)
[2019-11-22 09:20] VITALS: BP 109/57
[2019-11-22] MEDS: LevETIRAcetam 500 MG TABLET PO SCH (09:32)
[2019-11-22] MEDS: OLANZapine 5 MG TABLET PO SCH ×2 (09:32→16:08)
[2019-11-22] MEDS: LORazepam 2 MG TABLET PO PRN ×2 (09:32→16:18)
[2019-11-22] MEDS: GABAPENTIN 400 MG CAPSULE PO SCH ×4 (09:32→20:51)
[2019-11-22] MEDS: ATENOLOL 100 MG TABLET PO SCH (09:32)
[2019-11-22] MEDS: SERTRALINE HCL 100 MG TABLET PO SCH (09:32)
[2019-11-22] MEDS: OxyCODONE HCL/ACETAMINOPHEN 5-325 MG TABLET PO PRN (11:29)
[2019-11-22 16:32] VITALS: BP 131/76
[2019-11-22] MEDS: TraZODone HCL 50 MG TABLET PO SCH (20:51)
[2019-11-23 08:00] VITALS: BP 111/78
[2019-11-23] MEDS: OLANZapine 5 MG TABLET PO SCH ×2 (09:10→16:08)
[2019-11-23] MEDS: LORazepam 2 MG TABLET PO PRN (09:10)
[2019-11-23] MEDS: LevETIRAcetam 500 MG TABLET PO SCH (09:10)
[2019-11-23] MEDS: GABAPENTIN 400 MG CAPSULE PO SCH ×4 (09:10→21:30)
[2019-11-23] MEDS: SERTRALINE HCL 100 MG TABLET PO SCH (09:10)
[2019-11-23] MEDS: ATENOLOL 100 MG TABLET PO SCH (09:11)
[2019-11-23] MEDS: HALOPERIDOL 5 MG TABLET PO PRN (09:12)
[2019-11-23 16:30] VITALS: BP 113/68
[2019-11-23] MEDS: TraZODone HCL 50 MG TABLET PO SCH (21:30)
[2019-11-24] MEDS: ATENOLOL 100 MG TABLET PO SCH (08:33)
[2019-11-24] MEDS: LevETIRAcetam 500 MG TABLET PO SCH (08:33)
[2019-11-24] MEDS: OLANZapine 5 MG TABLET PO SCH ×2 (08:33→17:05)
[2019-11-24] MEDS: GABAPENTIN 400 MG CAPSULE PO SCH ×4 (08:33→21:22)
[2019-11-24] MEDS: SERTRALINE HCL 100 MG TABLET PO SCH (08:33)
[2019-11-24] MEDS: LORazepam 2 MG TABLET PO PRN (08:36)
[2019-11-24 13:08] VITALS: BP 117/74
[2019-11-24 16:48] VITALS: BP 130/89
[2019-11-24] MEDS: TraZODone HCL 50 MG TABLET PO SCH (21:22)
[2019-11-25 00:01] VITALS: BP 118/73
[2019-11-25] MEDS: ZOLPIDEM TARTRATE 10 MG TABLET PO PRN (00:05)
[2019-11-25] MEDS: LORazepam 2 MG TABLET PO PRN (06:03)
[2019-11-25] MEDS: OLANZapine 5 MG TABLET PO SCH ×2 (08:56→16:23)
[2019-11-25] MEDS: LevETIRAcetam 500 MG TABLET PO SCH (08:56)
[2019-11-25] MEDS: ATENOLOL 100 MG TABLET PO SCH (08:56)
[2019-11-25] MEDS: GABAPENTIN 400 MG CAPSULE PO SCH ×4 (08:56→21:15)
[2019-11-25] MEDS: SERTRALINE HCL 100 MG TABLET PO SCH (08:56)
[2019-11-25 08:59] VITALS: BP 123/78
[2019-11-25] MEDS: OxyCODONE HCL/ACETAMINOPHEN 5-325 MG TABLET PO PRN (08:59)
[2019-11-25 16:00] VITALS: BP 101/72
[2019-11-25] MEDS: TraZODone HCL 50 MG TABLET PO SCH (21:15)
[2019-11-26 08:00] VITALS: BP 106/70
[2019-11-26] MEDS: LORazepam 2 MG TABLET PO PRN (08:21)
[2019-11-26] MEDS: LevETIRAcetam 500 MG TABLET PO SCH (08:21)
[2019-11-26] MEDS: ATENOLOL 100 MG TABLET PO SCH (08:21)
[2019-11-26] MEDS: SERTRALINE HCL 100 MG TABLET PO SCH (08:21)
[2019-11-26] MEDS: GABAPENTIN 400 MG CAPSULE PO SCH ×4 (08:21→20:57)
[2019-11-26] MEDS: OLANZapine 5 MG TABLET PO SCH ×2 (08:21→16:46)
[2019-11-26 16:46] VITALS: BP 109/73
[2019-11-26] MEDS: TraZODone HCL 50 MG TABLET PO SCH (20:57)
[2019-11-27 01:28] VITALS: BP 104/78
[2019-11-27] MEDS: LORazepam 2 MG TABLET PO PRN ×2 (01:28→10:09)
[2019-11-27] MEDS: OLANZapine 5 MG TABLET PO SCH (10:09)
[2019-11-27] MEDS: ATENOLOL 100 MG TABLET PO SCH (10:09)
[2019-11-27] MEDS: GABAPENTIN 400 MG CAPSULE PO SCH ×2 (10:09→14:41)
[2019-11-27] MEDS: LevETIRAcetam 500 MG TABLET PO SCH (10:09)
[2019-11-27] MEDS: SERTRALINE HCL 100 MG TABLET PO SCH (10:09)
[2019-11-27] MEDS: OxyCODONE HCL/ACETAMINOPHEN 5-325 MG TABLET PO PRN (12:15)
[2019-11-27] MEDS ORDERED: OLAN5TAB2 PO (14:29)
[2019-11-27] MEDS ORDERED: SERT100T12 PO (14:30)
== END 2019-11-27 17:20 | disposition home or self-care (01) | DRG 751 ==
LOC: EMS 19:46 → 3EI 21:30
PROVIDERS: ADMIT Psychiatry & Neurology Psychiatry; ATTEND Psychiatry & Neurology Psychiatry
DX: F33.2 Major depressive disorder, recurrent severe without psychotic features (principal); I10 Essential (primary) hypertension; K21.9 Gastro-esophageal reflux disease without esophagitis; R45.851 Suicidal ideations; G89.29 Other chronic pain; G62.9 Polyneuropathy, unspecified; G40.909 Epilepsy, unspecified, not intractable, without status epilepticus; D72.829 Elevated white blood cell count, unspecified; F41.9 Anxiety disorder, unspecified; Z59.0 Homelessness; Z86.73 Personal history of transient ischemic attack (TIA), and cerebral infarction without residual deficits; Z89.512 Acquired absence of left leg below knee; Z91.5 Personal history of self-harm
CPT/HCPCS: G0480; J3535

== ENCOUNTER 2019-12-06 09:21 | Emergency (ER) | payer MEDICAID, OTHER ==
[~2019-12-06] VITALS: Ht 177.8 cm; Wt 72.7 kg
[~2019-12-06 09:21] MED LIST changes: -DOCU-275 PO; -ESCI20TA87 PO; -FOLI-130 PO; -MULT-248 PO; +OLAN5TAB2 PO; -OMEP20 PO; +SERT100T12 PO
[2019-12-06] MEDS ORDERED: LORazepam 2 MG/ML VIAL IVP ONE (10:15)
[2019-12-06 10:29] LABS: BASOPHILS % (AUTO) 0.5 % (0.0-2.0); EOSINOPHILS % (AUTO) 0 % (1.0-6.0); HEMOGLOBIN 13.4 g/dL (13.5-17.5); LYMPHOCYTES # (AUTO) 0.7 K/uL (1.0-4.8); LYMPHOCYTES % (AUTO) 9.7 % (22.0-44.0); MEAN CORPUSCULAR HEMOGLOBIN 31.4 pg (26.0-34.0); MEAN CORPUSCULAR HGB CONC 34.2 G/dL (31.0-37.0); MEAN CORPUSCULAR VOLUME 92 fL (80-100); MONOCYTES # (AUTO) 0.4 K/uL (0.1-1.0); MONOCYTES % (AUTO) 5.7 % (2.0-9.0); NEUTROPHILS # (AUTO) 5.8 K/uL (1.8-7.7); NEUTROPHILS % (AUTO) 84.1 % (40.0-70.0); PLATELET COUNT (AUTO) 220 K/uL (150-450); RED BLOOD CELL COUNT(AUTO) 4.26 MIL/uL (4.50-5.90); RED CELL DISTRIBUTION WIDTH 13.2 % (11.5-14.5)
[2019-12-06 10:40] LABS: ANION GAP 9 mmol/L (8-16); CALCIUM, TOTAL 8.7 mg/dL (8.8-10.5); CARBON DIOXIDE 24 mmol/L (22-29); CHLORIDE 100 mmol/L (98-107); CREATININE 0.86 mg/dL (0.60-1.30); GLOMERULAR FILTR. RATE CALC > 60 mL/min (>60); GLUCOSE,RANDOM 120 mg/dL (70-110); POTASSIUM 3.7 mmol/L (3.5-5.1); SODIUM SERUM 133 mmol/L (136-145); UREA NITROGEN, BLOOD 17 mg/dL (7-18)
[2019-12-06 10:45] LABS: ALANINE AMINOTRANSFERASE 25 U/L (12-78); ALBUMIN 3.7 g/dL (3.4-5.0); ALKALINE PHOSPHATASE 105 U/L (46-116); ASPARTATE AMINOTRANSFERASE 29 U/L (15-37); BILIRUBIN,TOTAL 1.1 mg/dL (0.1-1.0); TOTAL PROTEIN, SERUM 7.8 g/dL (6.4-8.2)
[2019-12-06] MEDS ORDERED: LORazepam 1 MG TABLET PO ONE (12:15)
[2019-12-06 17:38] VITALS: BP 133/86
== END 2019-12-06 17:40 | disposition home or self-care (01) ==
LOC: EMS 09:22
DX: G91.2 (Idiopathic) normal pressure hydrocephalus (principal); F32.9 Major depressive disorder, single episode, unspecified; Z79.899 Other long term (current) drug therapy; F10.239 Alcohol dependence with withdrawal, unspecified; Y90.0 Blood alcohol level of less than 20 mg/100 ml
CPT/HCPCS: 36415; 70450; 70551; 80053; 82948; 84484; 85025; 93005; 99285; G0480

== ENCOUNTER 2019-12-13 17:12 | Inpatient (IN) | payer MEDICAID, OTHER ==
[~2019-12-13] VITALS: Ht 177.8 cm; Wt 70.8 kg
[2019-12-13 20:06] LABS: ANION GAP 12 mmol/L (8-16); BASOPHILS % (AUTO) 0.5 % (0.0-2.0); CALCIUM, TOTAL 8.5 mg/dL (8.8-10.5); CARBON DIOXIDE 24 mmol/L (22-29); CHLORIDE 101 mmol/L (98-107); CREATININE 0.78 mg/dL (0.60-1.30); EOSINOPHILS % (AUTO) 0.2 % (1.0-6.0); GLOMERULAR FILTR. RATE CALC > 60 mL/min (>60); GLUCOSE,RANDOM 81 mg/dL (70-110); HEMATOCRIT 40.3 % (41-53); HEMOGLOBIN 13.8 g/dL (13.5-17.5); LYMPHOCYTES % (AUTO) 12.4 % (22.0-44.0); MEAN CORPUSCULAR HEMOGLOBIN 31.5 pg (26.0-34.0); MEAN CORPUSCULAR HGB CONC 34.1 G/dL (31.0-37.0); MEAN CORPUSCULAR VOLUME 92 fL (80-100); MONOCYTES # (AUTO) 0.8 K/uL (0.1-1.0); NEUTROPHILS # (AUTO) 6.2 K/uL (1.8-7.7); NEUTROPHILS % (AUTO) 76.9 % (40.0-70.0); POTASSIUM 3.7 mmol/L (3.5-5.1); RED BLOOD CELL COUNT(AUTO) 4.37 MIL/uL (4.50-5.90); RED CELL DISTRIBUTION WIDTH 13.9 % (11.5-14.5); SODIUM SERUM 137 mmol/L (136-145); UREA NITROGEN, BLOOD 16 mg/dL (7-18)
[2019-12-13 20:12] LABS: ALANINE AMINOTRANSFERASE 40 U/L (12-78); ALBUMIN 3.9 g/dL (3.4-5.0); ALKALINE PHOSPHATASE 99 U/L (46-116); ASPARTATE AMINOTRANSFERASE 61 U/L (15-37); BILIRUBIN,TOTAL 1.6 mg/dL (0.1-1.0)
[2019-12-13 20:24] LABS: AMPHET/METH SCREEN,URINE NEGATIVE (NEGATIVE); BARBITURATE SCREEN, URINE NEGATIVE (NEGATIVE); BENZODIAZEPINES SCREEN,URINE NEGATIVE (NEGATIVE); CANNABINOID SCREEN,URINE NEGATIVE (NEGATIVE); COCAINE SCREEN,URINE NEGATIVE (NEGATIVE); METHADONE SCREEN, URINE NEGATIVE (NEGATIVE); OPIATE SCREEN,URINE NEGATIVE (NEGATIVE)
[2019-12-13 20:28] LABS: PLATELET COUNT (AUTO) 177 K/uL (150-450)
[2019-12-13 21:19] LABS: PHENCYCLIDINE SCREEN,URINE NEGATIVE (NEGATIVE)
[2019-12-13] MEDS ORDERED: HALOPERIDOL 5 MG TABLET PO PRN (21:45)
[2019-12-13] MEDS ORDERED: ZOLPIDEM TARTRATE 10 MG TABLET PO PRN (21:45)
[2019-12-13 23:33] LABS: APPEARANCE,URINE CLEAR (CLEAR); GLUCOSE, URINE (UA) NEGATIVE (NEGATIVE); KETONES,URINE >=80 mg/dL (NEGATIVE); LEUKOCYTE ESTERASE ,URINE SMALL (NEGATIVE); NITRATE,URINE NEGATIVE (NEGATIVE); OCCULT BLOOD,URINE NEGATIVE (NEGATIVE); PROTEIN,URINE POS 1+ (NEGATIVE)
[2019-12-13 23:41] LABS: BILIRUBIN,URINE PRELIM. POSITIVE (NEGATIVE)
[2019-12-13 23:45] LABS: BACTERIA,URINE Few /HPF (None Seen); RBC,URINE 0-2 /HPF (0-2); SQUAMOUS EPITHELIAL CELL,UR Few /LPF (None Seen)
[2019-12-14 02:46] LABS: CHOL/HDL RATIO 1.5 (4.2-7.3); CHOLESTEROL 212 mg/dL (131-200); HDL CHOLESTEROL 142 mg/dL (40-60); LDL CHOL (CALC.) 64 mg/dL (0-130); TRIGLYCERIDES 28 mg/dL (15-150)
[2019-12-14] MEDS: LORazepam 2 MG TABLET PO PRN ×2 (04:26→09:27)
[2019-12-14 04:41] VITALS: BP 145/89
[2019-12-14] MEDS ORDERED: DOCUSATE SODIUM 100 MG CAPSULE PO PRN (07:45)
[2019-12-14] MEDS ORDERED: PETROLATUM,WHITE 28 GM JELLY TP PRN (07:45)
[2019-12-14] MEDS ORDERED: GuaiFENesin/D-METHORPHAN [SUGAR-FREE] 200-20MG/10 ML SYRUP UDCUP PO PRN (07:45)
[2019-12-14] MEDS ORDERED: LOPERAMIDE HCL 2 MG CAPSULE PO PRN (07:45)
[2019-12-14] MEDS ORDERED: MAG HYDROX/AL HYDROX/SIMETH ES 30 ML SUSPENSION UDCUP PO PRN (07:45)
[2019-12-14] MEDS ORDERED: MAGNESIUM HYDROXIDE SUSPENSION 30 ML UDCUP PO PRN (07:45)
[2019-12-14] MEDS ORDERED: ACETAMINOPHEN 325 MG TABLET PO PRN (07:45)
[2019-12-14] MEDS ORDERED: NICOTINE 14 MG/24 HOUR PATCH TD PRN (07:45)
[2019-12-14] MEDS ORDERED: ONDANSETRON HCL 4 MG TABLET PO PRN (07:45)
[2019-12-14] MEDS ORDERED: IBUPROFEN 400 MG TABLET PO PRN (07:45)
[2019-12-14] MEDS ORDERED: CloNIDine HCL 0.1 MG TABLET PO PRN (07:45)
[2019-12-14 08:52] VITALS: BP 139/86
[2019-12-14] MEDS: ATENOLOL 50 MG TABLET PO SCH (09:26)
[2019-12-14] MEDS: LevETIRAcetam 500 MG TABLET PO SCH (09:26)
[2019-12-14] MEDS: GABAPENTIN 400 MG CAPSULE PO SCH ×3 (14:10→20:15)
[2019-12-14] MEDS: OLANZapine 5 MG TABLET PO SCH (16:41)
[2019-12-14 18:02] VITALS: BP 130/79
[2019-12-14] MEDS: TraZODone HCL 50 MG TABLET PO SCH (20:15)
[2019-12-15 05:55] VITALS: BP 125/77
[2019-12-15 08:09] VITALS: BP 122/74
[2019-12-15 08:16] LABS: BASOPHILS % (AUTO) 0.7 % (0.0-2.0); EOSINOPHILS % (AUTO) 1.2 % (1.0-6.0); HEMATOCRIT 42.8 % (41-53); HEMOGLOBIN 14.1 g/dL (13.5-17.5); LYMPHOCYTES % (AUTO) 15.6 % (22.0-44.0); MEAN CORPUSCULAR HEMOGLOBIN 31.6 pg (26.0-34.0); MEAN CORPUSCULAR VOLUME 96 fL (80-100); MONOCYTES # (AUTO) 0.6 K/uL (0.1-1.0); MONOCYTES % (AUTO) 9.1 % (2.0-9.0); NEUTROPHILS # (AUTO) 4.8 K/uL (1.8-7.7); NEUTROPHILS % (AUTO) 73.4 % (40.0-70.0); PLATELET COUNT (AUTO) 144 K/uL (150-450); RED BLOOD CELL COUNT(AUTO) 4.47 MIL/uL (4.50-5.90); RED CELL DISTRIBUTION WIDTH 13.9 % (11.5-14.5)
[2019-12-15] MEDS: ATENOLOL 50 MG TABLET PO SCH (09:20)
[2019-12-15] MEDS: OLANZapine 5 MG TABLET PO SCH ×2 (09:20→17:11)
[2019-12-15] MEDS: SERTRALINE HCL 100 MG TABLET PO SCH (09:20)
[2019-12-15] MEDS: GABAPENTIN 400 MG CAPSULE PO SCH ×4 (09:20→20:11)
[2019-12-15] MEDS: LevETIRAcetam 500 MG TABLET PO SCH (09:20)
[2019-12-15] MEDS: MUPIROCIN CALCIUM 2% 22 GM OINTMENT NASAL SCH ×2 (14:50→17:12)
[2019-12-15] MEDS: LORazepam 2 MG TABLET PO PRN (17:11)
[2019-12-15 17:30] VITALS: BP 123/79
[2019-12-15] MEDS: TraZODone HCL 50 MG TABLET PO SCH (20:11)
[2019-12-16 04:42] VITALS: BP 125/78
[2019-12-16 08:14] VITALS: BP 109/79
[2019-12-16] MEDS: OLANZapine 5 MG TABLET PO SCH ×2 (09:17→16:35)
[2019-12-16] MEDS: ATENOLOL 50 MG TABLET PO SCH (09:17)
[2019-12-16] MEDS: SERTRALINE HCL 100 MG TABLET PO SCH (09:17)
[2019-12-16] MEDS: LevETIRAcetam 500 MG TABLET PO SCH (09:17)
[2019-12-16] MEDS: GABAPENTIN 400 MG CAPSULE PO SCH ×4 (09:17→20:05)
[2019-12-16] MEDS: MUPIROCIN CALCIUM 2% 22 GM OINTMENT NASAL SCH ×2 (09:18→16:36)
[2019-12-16 16:14] VITALS: BP 108/76
[2019-12-16] MEDS: LORazepam 2 MG TABLET PO PRN (17:22)
[2019-12-16] MEDS: TraZODone HCL 50 MG TABLET PO SCH (20:05)
[2019-12-17 05:15] VITALS: BP 119/81
[2019-12-17 08:58] VITALS: BP 112/74
[2019-12-17] MEDS: ATENOLOL 50 MG TABLET PO SCH (09:00)
[2019-12-17] MEDS: MUPIROCIN CALCIUM 2% 22 GM OINTMENT NASAL SCH ×2 (09:00→16:15)
[2019-12-17] MEDS: SERTRALINE HCL 100 MG TABLET PO SCH (11:03)
[2019-12-17] MEDS: GABAPENTIN 400 MG CAPSULE PO SCH ×4 (11:03→20:21)
[2019-12-17] MEDS: LORazepam 2 MG TABLET PO PRN ×2 (11:03→17:48)
[2019-12-17] MEDS: OLANZapine 5 MG TABLET PO SCH ×2 (11:04→16:15)
[2019-12-17] MEDS: LevETIRAcetam 500 MG TABLET PO SCH (11:04)
[2019-12-17 16:05] VITALS: BP 108/77
[2019-12-17] MEDS: TraZODone HCL 50 MG TABLET PO SCH (20:21)
[2019-12-18 01:01] VITALS: BP 100/62
[2019-12-18 08:15] VITALS: BP 137/97
[2019-12-18] MEDS: LevETIRAcetam 500 MG TABLET PO SCH (08:37)
[2019-12-18] MEDS: SERTRALINE HCL 100 MG TABLET PO SCH (08:37)
[2019-12-18] MEDS: OLANZapine 5 MG TABLET PO SCH ×2 (08:37→16:16)
[2019-12-18] MEDS: ATENOLOL 50 MG TABLET PO SCH (08:37)
[2019-12-18] MEDS: GABAPENTIN 400 MG CAPSULE PO SCH ×4 (08:37→20:17)
[2019-12-18] MEDS: MUPIROCIN CALCIUM 2% 22 GM OINTMENT NASAL SCH ×2 (08:38→16:18)
[2019-12-18] MEDS: LORazepam 2 MG TABLET PO PRN (09:54)
[2019-12-18 16:05] VITALS: BP 105/70
[2019-12-18] MEDS: TraZODone HCL 50 MG TABLET PO SCH (20:18)
[2019-12-19 00:34] VITALS: BP 120/82
[2019-12-19] MEDS: MUPIROCIN CALCIUM 2% 22 GM OINTMENT NASAL SCH ×2 (08:11→16:46)
[2019-12-19] MEDS: ATENOLOL 50 MG TABLET PO SCH (08:12)
[2019-12-19] MEDS: SERTRALINE HCL 100 MG TABLET PO SCH (08:12)
[2019-12-19] MEDS: FOLIC ACID 1 MG TABLET PO SCH (08:12)
[2019-12-19] MEDS: LevETIRAcetam 500 MG TABLET PO SCH (08:12)
[2019-12-19] MEDS: THIAMINE 100 MG TABLET PO SCH (08:12)
[2019-12-19] MEDS: LORazepam 2 MG TABLET PO PRN ×2 (08:13→14:45)
[2019-12-19] MEDS: GABAPENTIN 400 MG CAPSULE PO SCH ×4 (08:13→20:16)
[2019-12-19] MEDS: OLANZapine 5 MG TABLET PO SCH ×2 (08:13→16:46)
[2019-12-19 08:15] VITALS: BP 137/73
[2019-12-19 16:28] VITALS: BP 139/69
[2019-12-19] MEDS: TraZODone HCL 50 MG TABLET PO SCH (20:16)
[2019-12-19] MEDS: ALBUTEROL SULFATE HFA 90 MCG/PUFF 8 GM INHALER IH PRN (21:02)
[2019-12-20 00:14] VITALS: BP 112/73
[2019-12-20 08:21] VITALS: BP 106/66
[2019-12-20] MEDS: MUPIROCIN CALCIUM 2% 22 GM OINTMENT NASAL SCH ×2 (08:33→16:13)
[2019-12-20] MEDS: ATENOLOL 50 MG TABLET PO SCH (08:34)
[2019-12-20] MEDS: FOLIC ACID 1 MG TABLET PO SCH (08:34)
[2019-12-20] MEDS: SERTRALINE HCL 100 MG TABLET PO SCH (08:34)
[2019-12-20] MEDS: CEPHALEXIN MONOHYDRATE 500 MG CAPSULE PO SCH ×3 (08:34→16:14)
[2019-12-20] MEDS: OLANZapine 5 MG TABLET PO SCH ×2 (08:34→16:10)
[2019-12-20] MEDS: GABAPENTIN 400 MG CAPSULE PO SCH ×4 (08:34→19:55)
[2019-12-20] MEDS: THIAMINE 100 MG TABLET PO SCH (08:35)
[2019-12-20] MEDS: LevETIRAcetam 500 MG TABLET PO SCH (08:35)
[2019-12-20] MEDS: LORazepam 2 MG TABLET PO PRN ×2 (09:08→16:10)
[2019-12-20 16:11] VITALS: BP 123/81
[2019-12-20] MEDS: TraZODone HCL 50 MG TABLET PO SCH (19:55)
[2019-12-21 00:01] VITALS: BP 125/72
[2019-12-21 01:22] VITALS: BP 121/77
[2019-12-21] MEDS: LORazepam 2 MG TABLET PO PRN ×2 (05:18→14:09)
[2019-12-21 08:23] VITALS: BP 132/80
[2019-12-21] MEDS: SERTRALINE HCL 100 MG TABLET PO SCH (08:37)
[2019-12-21] MEDS: OLANZapine 5 MG TABLET PO SCH ×2 (08:37→17:05)
[2019-12-21] MEDS: MUPIROCIN CALCIUM 2% 22 GM OINTMENT NASAL SCH (08:37)
[2019-12-21] MEDS: FOLIC ACID 1 MG TABLET PO SCH (08:37)
[2019-12-21] MEDS: ATENOLOL 50 MG TABLET PO SCH (08:37)
[2019-12-21] MEDS: CEPHALEXIN MONOHYDRATE 500 MG CAPSULE PO SCH ×3 (08:38→17:05)
[2019-12-21] MEDS: GABAPENTIN 400 MG CAPSULE PO SCH ×4 (08:38→20:11)
[2019-12-21] MEDS: LevETIRAcetam 500 MG TABLET PO SCH (08:38)
[2019-12-21] MEDS: THIAMINE 100 MG TABLET PO SCH (08:38)
[2019-12-21 16:27] VITALS: BP 105/64
[2019-12-21] MEDS: TraZODone HCL 50 MG TABLET PO SCH (20:11)
[2019-12-22 01:34] VITALS: BP 112/68
[2019-12-22] MEDS: LORazepam 2 MG TABLET PO PRN ×2 (05:40→16:48)
[2019-12-22] MEDS: LevETIRAcetam 500 MG TABLET PO SCH (08:50)
[2019-12-22] MEDS: SERTRALINE HCL 100 MG TABLET PO SCH (08:50)
[2019-12-22] MEDS: GABAPENTIN 400 MG CAPSULE PO SCH ×4 (08:50→20:21)
[2019-12-22] MEDS: CEPHALEXIN MONOHYDRATE 500 MG CAPSULE PO SCH ×3 (08:50→16:34)
[2019-12-22] MEDS: THIAMINE 100 MG TABLET PO SCH (08:51)
[2019-12-22] MEDS: FOLIC ACID 1 MG TABLET PO SCH (08:51)
[2019-12-22] MEDS: OLANZapine 5 MG TABLET PO SCH ×2 (08:51→16:34)
[2019-12-22] MEDS: ATENOLOL 50 MG TABLET PO SCH (08:51)
[2019-12-22 09:14] VITALS: BP 110/70
[2019-12-22 16:04] VITALS: BP 113/76
[2019-12-22] MEDS: ALBUTEROL SULFATE HFA 90 MCG/PUFF 8 GM INHALER IH PRN (17:28)
[2019-12-22] MEDS: TraZODone HCL 50 MG TABLET PO SCH (20:21)
[2019-12-23 01:33] VITALS: BP 112/74
[2019-12-23] MEDS: LORazepam 2 MG TABLET PO PRN ×2 (03:08→17:58)
[2019-12-23 08:40] VITALS: BP 100/67
[2019-12-23] MEDS: THIAMINE 100 MG TABLET PO SCH (08:41)
[2019-12-23] MEDS: GABAPENTIN 400 MG CAPSULE PO SCH ×4 (08:41→20:07)
[2019-12-23] MEDS: LevETIRAcetam 500 MG TABLET PO SCH (08:41)
[2019-12-23] MEDS: FOLIC ACID 1 MG TABLET PO SCH (08:41)
[2019-12-23] MEDS: SERTRALINE HCL 100 MG TABLET PO SCH (08:41)
[2019-12-23] MEDS: OLANZapine 5 MG TABLET PO SCH ×2 (08:41→16:43)
[2019-12-23] MEDS: CEPHALEXIN MONOHYDRATE 500 MG CAPSULE PO SCH ×3 (08:41→16:43)
[2019-12-23] MEDS: ATENOLOL 50 MG TABLET PO SCH (08:47)
[2019-12-23 16:05] VITALS: BP 104/70
[2019-12-23 17:55] VITALS: BP 113/74
[2019-12-23] MEDS: TraZODone HCL 50 MG TABLET PO SCH (20:07)
[2019-12-24 03:41] VITALS: BP 110/68
[2019-12-24 08:21] VITALS: BP 121/71
[2019-12-24] MEDS: FOLIC ACID 1 MG TABLET PO SCH (08:38)
[2019-12-24] MEDS: GABAPENTIN 400 MG CAPSULE PO SCH ×4 (08:38→19:36)
[2019-12-24] MEDS: CEPHALEXIN MONOHYDRATE 500 MG CAPSULE PO SCH ×3 (08:38→16:33)
[2019-12-24] MEDS: OLANZapine 5 MG TABLET PO SCH ×2 (08:38→16:33)
[2019-12-24] MEDS: SERTRALINE HCL 100 MG TABLET PO SCH (08:38)
[2019-12-24] MEDS: LevETIRAcetam 500 MG TABLET PO SCH (08:38)
[2019-12-24] MEDS: ATENOLOL 50 MG TABLET PO SCH (08:38)
[2019-12-24] MEDS: THIAMINE 100 MG TABLET PO SCH (08:39)
[2019-12-24] MEDS ORDERED: ZOLPIDEM TARTRATE 10 MG TABLET PO PRN (11:45)
[2019-12-24] MEDS: LORazepam 2 MG TABLET PO PRN (13:19)
[2019-12-24 16:16] VITALS: BP 120/73
[2019-12-24] MEDS: TraZODone HCL 50 MG TABLET PO SCH (19:36)
[2019-12-25 05:32] VITALS: BP 133/98
[2019-12-25 08:10] VITALS: BP 124/85
[2019-12-25] MEDS: SERTRALINE HCL 100 MG TABLET PO SCH (08:13)
[2019-12-25] MEDS: GABAPENTIN 400 MG CAPSULE PO SCH ×4 (08:13→20:13)
[2019-12-25] MEDS: LevETIRAcetam 500 MG TABLET PO SCH (08:13)
[2019-12-25] MEDS: ATENOLOL 50 MG TABLET PO SCH (08:13)
[2019-12-25] MEDS: FOLIC ACID 1 MG TABLET PO SCH (08:13)
[2019-12-25] MEDS: OLANZapine 5 MG TABLET PO SCH ×2 (08:13→16:15)
[2019-12-25] MEDS: THIAMINE 100 MG TABLET PO SCH (08:13)
[2019-12-25] MEDS: LORazepam 2 MG TABLET PO PRN ×2 (08:34→16:15)
[2019-12-25 16:19] VITALS: BP 140/90
[2019-12-25] MEDS: TraZODone HCL 50 MG TABLET PO SCH (20:13)
[2019-12-26] MEDS: LORazepam 2 MG TABLET PO PRN ×2 (06:23→12:26)
[2019-12-26 06:43] VITALS: BP 129/77
[2019-12-26 08:07] VITALS: BP 121/78
[2019-12-26] MEDS: SERTRALINE HCL 100 MG TABLET PO SCH (08:13)
[2019-12-26] MEDS: OLANZapine 5 MG TABLET PO SCH ×2 (08:13→16:13)
[2019-12-26] MEDS: FOLIC ACID 1 MG TABLET PO SCH (08:13)
[2019-12-26] MEDS: GABAPENTIN 400 MG CAPSULE PO SCH ×4 (08:13→20:23)
[2019-12-26] MEDS: THIAMINE 100 MG TABLET PO SCH (08:13)
[2019-12-26] MEDS: LevETIRAcetam 500 MG TABLET PO SCH (08:13)
[2019-12-26] MEDS: ATENOLOL 50 MG TABLET PO SCH (08:13)
[2019-12-26 16:13] VITALS: BP 150/63
[2019-12-26] MEDS: TraZODone HCL 50 MG TABLET PO SCH (20:23)
[2019-12-27 00:43] VITALS: BP 126/69
[2019-12-27] MEDS: LORazepam 2 MG TABLET PO PRN ×4 (00:51→17:33)
[2019-12-27] MEDS: ALBUTEROL SULFATE HFA 90 MCG/PUFF 8 GM INHALER IH PRN (00:52)
[2019-12-27 08:32] VITALS: BP 115/69
[2019-12-27] MEDS: THIAMINE 100 MG TABLET PO SCH (09:01)
[2019-12-27] MEDS: FOLIC ACID 1 MG TABLET PO SCH (09:02)
[2019-12-27] MEDS: SERTRALINE HCL 100 MG TABLET PO SCH (09:02)
[2019-12-27] MEDS: GABAPENTIN 400 MG CAPSULE PO SCH ×4 (09:02→20:47)
[2019-12-27] MEDS: LevETIRAcetam 500 MG TABLET PO SCH (09:02)
[2019-12-27] MEDS: ATENOLOL 50 MG TABLET PO SCH (09:02)
[2019-12-27] MEDS: OLANZapine 5 MG TABLET PO SCH ×2 (09:02→16:20)
[2019-12-27 16:06] VITALS: BP 115/78
[2019-12-27] MEDS: TraZODone HCL 50 MG TABLET PO SCH (20:46)
[2019-12-28] VITALS (10 sets, daily range): BP systolic 99–137; BP diastolic 66–88
[2019-12-28] MEDS: LORazepam 2 MG TABLET PO PRN ×2 (02:24→17:09)
[2019-12-28] MEDS: GABAPENTIN 400 MG CAPSULE PO SCH ×4 (08:41→20:20)
[2019-12-28] MEDS: OLANZapine 5 MG TABLET PO SCH ×2 (08:42→16:15)
[2019-12-28] MEDS: THIAMINE 100 MG TABLET PO SCH (08:42)
[2019-12-28] MEDS: ATENOLOL 50 MG TABLET PO SCH (08:42)
[2019-12-28] MEDS: FOLIC ACID 1 MG TABLET PO SCH (08:42)
[2019-12-28] MEDS: LevETIRAcetam 500 MG TABLET PO SCH (08:42)
[2019-12-28] MEDS: SERTRALINE HCL 100 MG TABLET PO SCH (08:42)
[2019-12-28] MEDS: TraZODone HCL 50 MG TABLET PO SCH (20:19)
[2019-12-29 05:16] VITALS: BP 126/80
[2019-12-29] MEDS: LORazepam 2 MG TABLET PO PRN (05:26)
[2019-12-29] MEDS: SERTRALINE HCL 100 MG TABLET PO SCH (08:45)
[2019-12-29] MEDS: THIAMINE 100 MG TABLET PO SCH (08:45)
[2019-12-29] MEDS: ATENOLOL 50 MG TABLET PO SCH (08:45)
[2019-12-29] MEDS: OLANZapine 5 MG TABLET PO SCH ×2 (08:45→16:17)
[2019-12-29] MEDS: LevETIRAcetam 500 MG TABLET PO SCH (08:45)
[2019-12-29] MEDS: GABAPENTIN 400 MG CAPSULE PO SCH ×4 (08:45→20:12)
[2019-12-29] MEDS: FOLIC ACID 1 MG TABLET PO SCH (08:45)
[2019-12-29 08:46] VITALS: BP 109/81
[2019-12-29 16:12] VITALS: BP 110/71
[2019-12-29] MEDS: TraZODone HCL 50 MG TABLET PO SCH (20:12)
[2019-12-30 00:57] VITALS: BP 113/69
[2019-12-30 05:48] VITALS: BP 113/69
[2019-12-30] MEDS ORDERED: TRAZ-252 PO (08:32)
[2019-12-30] MEDS ORDERED: GABA-1201 PO (08:32)
[2019-12-30] MEDS ORDERED: OLAN5TAB2 PO (08:32)
[2019-12-30] MEDS ORDERED: SERT100T12 PO (08:33)
[2019-12-30 08:34] VITALS: BP 114/69
[2019-12-30] MEDS: LevETIRAcetam 500 MG TABLET PO SCH (08:34)
[2019-12-30] MEDS: OLANZapine 5 MG TABLET PO SCH ×2 (08:34→16:05)
[2019-12-30] MEDS: LORazepam 2 MG TABLET PO PRN ×2 (08:34→14:16)
[2019-12-30] MEDS: FOLIC ACID 1 MG TABLET PO SCH (08:34)
[2019-12-30] MEDS: ATENOLOL 50 MG TABLET PO SCH (08:34)
[2019-12-30] MEDS: GABAPENTIN 400 MG CAPSULE PO SCH ×4 (08:34→20:21)
[2019-12-30] MEDS: SERTRALINE HCL 100 MG TABLET PO SCH (08:34)
[2019-12-30] MEDS: THIAMINE 100 MG TABLET PO SCH (08:34)
[2019-12-30 16:15] VITALS: BP 115/77
[2019-12-30] MEDS: TraZODone HCL 50 MG TABLET PO SCH (20:21)
[2019-12-31 00:53] VITALS: BP 123/76
[2019-12-31] MEDS: FOLIC ACID 1 MG TABLET PO SCH (08:17)
[2019-12-31] MEDS: OLANZapine 5 MG TABLET PO SCH ×2 (08:17→16:47)
[2019-12-31] MEDS: GABAPENTIN 400 MG CAPSULE PO SCH ×4 (08:18→20:25)
[2019-12-31] MEDS: ATENOLOL 50 MG TABLET PO SCH (08:19)
[2019-12-31] MEDS: THIAMINE 100 MG TABLET PO SCH (08:20)
[2019-12-31] MEDS: LevETIRAcetam 500 MG TABLET PO SCH (08:20)
[2019-12-31] MEDS: SERTRALINE HCL 100 MG TABLET PO SCH (08:20)
[2019-12-31 08:25] VITALS: BP 104/65
[2019-12-31 08:34] VITALS: BP 110/68
[2019-12-31] MEDS: LORazepam 2 MG TABLET PO PRN ×2 (09:42→16:50)
[2019-12-31 16:08] VITALS: BP 124/83
[2019-12-31] MEDS: TraZODone HCL 50 MG TABLET PO SCH (20:25)
[2020-01-01 05:36] VITALS: BP 114/85
[2020-01-01 08:07] VITALS: BP 122/80
[2020-01-01] MEDS: GABAPENTIN 400 MG CAPSULE PO SCH ×4 (08:17→20:25)
[2020-01-01] MEDS: FOLIC ACID 1 MG TABLET PO SCH (08:17)
[2020-01-01] MEDS: ATENOLOL 50 MG TABLET PO SCH (08:18)
[2020-01-01] MEDS: THIAMINE 100 MG TABLET PO SCH (08:18)
[2020-01-01] MEDS: SERTRALINE HCL 100 MG TABLET PO SCH (08:21)
[2020-01-01] MEDS: OLANZapine 5 MG TABLET PO SCH ×2 (08:21→16:39)
[2020-01-01] MEDS: LevETIRAcetam 500 MG TABLET PO SCH (08:21)
[2020-01-01] MEDS: LORazepam 2 MG TABLET PO PRN ×2 (09:56→14:46)
[2020-01-01 16:06] VITALS: BP 133/90
[2020-01-01] MEDS: TraZODone HCL 50 MG TABLET PO SCH (20:26)
[2020-01-02] MEDS: LevETIRAcetam 500 MG TABLET PO SCH (08:17)
[2020-01-02] MEDS: ATENOLOL 50 MG TABLET PO SCH (08:17)
[2020-01-02] MEDS: OLANZapine 5 MG TABLET PO SCH (08:17)
[2020-01-02] MEDS: THIAMINE 100 MG TABLET PO SCH (08:17)
[2020-01-02] MEDS: FOLIC ACID 1 MG TABLET PO SCH (08:17)
[2020-01-02] MEDS: SERTRALINE HCL 100 MG TABLET PO SCH (08:17)
[2020-01-02] MEDS: GABAPENTIN 400 MG CAPSULE PO SCH (08:17)
[2020-01-02 08:26] VITALS: BP 111/79
== END 2020-01-02 12:05 | disposition home or self-care (01) | DRG 751 ==
LOC: EMS 17:12 → B3A 21:31 → B2S 21:32
PROVIDERS: ADMIT Psychiatry & Neurology Psychiatry; ATTEND Psychiatry & Neurology Psychiatry
DX: F33.2 Major depressive disorder, recurrent severe without psychotic features (principal); F41.9 Anxiety disorder, unspecified; R45.851 Suicidal ideations; F10.10 Alcohol abuse, uncomplicated; N39.0 Urinary tract infection, site not specified; E78.5 Hyperlipidemia, unspecified; I10 Essential (primary) hypertension; K21.9 Gastro-esophageal reflux disease without esophagitis; G40.909 Epilepsy, unspecified, not intractable, without status epilepticus; Z86.73 Personal history of transient ischemic attack (TIA), and cerebral infarction without residual deficits; Z89.512 Acquired absence of left leg below knee; Z59.0 Homelessness
CPT/HCPCS: 87081; 87086; 87426; G0480; J3535

== ENCOUNTER 2020-01-03 13:27 | Emergency (ER) | payer MEDICAID, OTHER ==
[~2020-01-03] VITALS: Ht 175.3 cm; Wt 77.3 kg
[~2020-01-03 13:27] MED LIST changes: +GABA-1201 PO; -GABA-533 PO
[2020-01-03 14:54] LABS: BASOPHILS % (AUTO) 1.2 % (0.0-2.0); EOSINOPHILS % (AUTO) 1.3 % (1.0-6.0); HEMOGLOBIN 14.2 g/dL (13.5-17.5); LYMPHOCYTES # (AUTO) 1.1 K/uL (1.0-4.8); LYMPHOCYTES % (AUTO) 17.3 % (22.0-44.0); MEAN CORPUSCULAR HGB CONC 33.7 G/dL (31.0-37.0); MEAN CORPUSCULAR VOLUME 92 fL (80-100); MONOCYTES # (AUTO) 0.9 K/uL (0.1-1.0); NEUTROPHILS # (AUTO) 4.5 K/uL (1.8-7.7); NEUTROPHILS % (AUTO) 67.2 % (40.0-70.0); PLATELET COUNT (AUTO) 231 K/uL (150-450); RED BLOOD CELL COUNT(AUTO) 4.57 MIL/uL (4.50-5.90)
[2020-01-03 15:07] LABS: ANION GAP 14 mmol/L (8-16); CALCIUM, TOTAL 8.8 mg/dL (8.8-10.5); CARBON DIOXIDE 25 mmol/L (22-29); CHLORIDE 103 mmol/L (98-107); CREATININE 1.13 mg/dL (0.60-1.30); GLOMERULAR FILTR. RATE CALC > 60 mL/min (>60); GLUCOSE,RANDOM 93 mg/dL (70-110); POTASSIUM 4.5 mmol/L (3.5-5.1); SODIUM SERUM 142 mmol/L (136-145); UREA NITROGEN, BLOOD 19 mg/dL (7-18)
[2020-01-03 15:14] LABS: ALANINE AMINOTRANSFERASE 55 U/L (12-78); ALKALINE PHOSPHATASE 118 U/L (46-116); ASPARTATE AMINOTRANSFERASE 45 U/L (15-37); BILIRUBIN,TOTAL 0.4 mg/dL (0.1-1.0); TOTAL PROTEIN, SERUM 7.4 g/dL (6.4-8.2)
[2020-01-03] MEDS ORDERED: LORazepam 1 MG TABLET PO ONE (16:15)
[2020-01-03 16:55] LABS: COVID AG,FIA SOURCE NASOPHARYNGEAL
[2020-01-03 18:30] VITALS: BP 120/66
[2020-01-04] MEDS ORDERED: TRAZ-257 PO (02:21)
[2020-01-04] MEDS ORDERED: LORA-1001 PO (02:21)
== END 2020-01-03 18:41 | disposition home or self-care (01) ==
LOC: EMS 13:30
DX: R45.851 Suicidal ideations (principal); R53.1 Weakness; F41.9 Anxiety disorder, unspecified; Z20.828 Contact with and (suspected) exposure to other viral communicable diseases; Z86.73 Personal history of transient ischemic attack (TIA), and cerebral infarction without residual deficits
CPT/HCPCS: 36415; 80053; 85025; 87426; 99284; G0480

== ENCOUNTER 2020-01-04 01:55 | Emergency (ER) | payer OTHER ==
[~2020-01-04] VITALS: Ht 170.2 cm; Wt 77.3 kg
[2020-01-04] MEDS ORDERED: TRAZ-257 PO (02:21)
[2020-01-04] MEDS ORDERED: LORA-1001 PO (02:21)
[2020-01-04 10:27] VITALS: BP 128/72
== END 2020-01-04 10:30 | disposition home or self-care (01) ==
LOC: EMS 01:55
DX: F10.10 Alcohol abuse, uncomplicated (principal); R51.9 Headache, unspecified; M79.10 Myalgia, unspecified site
CPT/HCPCS: Z7502

== ENCOUNTER 2020-01-06 00:08 | Inpatient (IN) | payer MEDICAID, OTHER ==
[~2020-01-06] VITALS: Ht 175.3 cm; Wt 74.2 kg
[~2020-01-06 00:08] MED LIST changes: +LORA-1001 PO; +TRAZ-257 PO
[2020-01-06 01:42] LABS: BASOPHILS % (AUTO) 0.4 % (0.0-2.0); EOSINOPHILS % (AUTO) 0.5 % (1.0-6.0); HEMATOCRIT 39.7 % (41-53); HEMOGLOBIN 13.4 g/dL (13.5-17.5); LYMPHOCYTES # (AUTO) 0.8 K/uL (1.0-4.8); LYMPHOCYTES % (AUTO) 10.8 % (22.0-44.0); MEAN CORPUSCULAR HGB CONC 33.7 G/dL (31.0-37.0); MEAN CORPUSCULAR VOLUME 92 fL (80-100); MONOCYTES # (AUTO) 0.6 K/uL (0.1-1.0); MONOCYTES % (AUTO) 8.1 % (2.0-9.0); NEUTROPHILS # (AUTO) 6.3 K/uL (1.8-7.7); NEUTROPHILS % (AUTO) 80.2 % (40.0-70.0); PLATELET COUNT (AUTO) 244 K/uL (150-450); RED BLOOD CELL COUNT(AUTO) 4.31 MIL/uL (4.50-5.90); RED CELL DISTRIBUTION WIDTH 13.9 % (11.5-14.5)
[2020-01-06] MEDS ORDERED: LORazepam 1 MG TABLET PO ONE (01:45)
[2020-01-06 01:54] LABS: ANION GAP 10 mmol/L (8-16); CALCIUM, TOTAL 9.1 mg/dL (8.8-10.5); CARBON DIOXIDE 26 mmol/L (22-29); CHLORIDE 104 mmol/L (98-107); CREATININE 0.95 mg/dL (0.60-1.30); GLOMERULAR FILTR. RATE CALC > 60 mL/min (>60); GLUCOSE,RANDOM 94 mg/dL (70-110); SODIUM SERUM 140 mmol/L (136-145); UREA NITROGEN, BLOOD 25 mg/dL (7-18)
[2020-01-06 02:01] LABS: ALANINE AMINOTRANSFERASE 50 U/L (12-78); ALKALINE PHOSPHATASE 124 U/L (46-116); ASPARTATE AMINOTRANSFERASE 41 U/L (15-37); BILIRUBIN,TOTAL 0.4 mg/dL (0.1-1.0); TOTAL PROTEIN, SERUM 7.8 g/dL (6.4-8.2)
[2020-01-06 02:20] LABS: AMPHET/METH SCREEN,URINE NEGATIVE (NEGATIVE); BARBITURATE SCREEN, URINE NEGATIVE (NEGATIVE); BENZODIAZEPINES SCREEN,URINE NEGATIVE (NEGATIVE); CANNABINOID SCREEN,URINE NEGATIVE (NEGATIVE); COCAINE SCREEN,URINE NEGATIVE (NEGATIVE); METHADONE SCREEN, URINE NEGATIVE (NEGATIVE); OPIATE SCREEN,URINE NEGATIVE (NEGATIVE)
[2020-01-06 02:22] LABS: PHENCYCLIDINE SCREEN,URINE NEGATIVE (NEGATIVE)
[2020-01-06 02:26] LABS: COVID AG,FIA SOURCE NASOPHARYNGEAL
[2020-01-06] MEDS ORDERED: HALOPERIDOL 5 MG TABLET PO PRN (04:30)
[2020-01-06 05:47] LABS: APPEARANCE,URINE CLEAR (CLEAR); BILIRUBIN,URINE NEGATIVE (NEGATIVE); GLUCOSE, URINE (UA) NEGATIVE (NEGATIVE); KETONES,URINE 40 mg/dL (NEGATIVE); LEUKOCYTE ESTERASE ,URINE NEGATIVE (NEGATIVE); NITRATE,URINE NEGATIVE (NEGATIVE); OCCULT BLOOD,URINE NEGATIVE (NEGATIVE); PH,URINE 5.5 (5.0-8.0); PROTEIN,URINE NEGATIVE (NEGATIVE)
[2020-01-06] MEDS: LORazepam 2 MG TABLET PO PRN ×3 (06:28→14:30)
[2020-01-07] MEDS: LORazepam 2 MG TABLET PO PRN ×4 (03:50→17:54)
[2020-01-07 07:56] LABS: CHOL/HDL RATIO 2.4 (4.2-7.3)
[2020-01-07 11:17] VITALS: BP 123/75
[2020-01-07 11:23] VITALS: BP 123/75
[2020-01-07 16:35] VITALS: BP 124/83
[2020-01-07] MEDS: GABAPENTIN 300 MG CAPSULE PO SCH (20:24)
[2020-01-07] MEDS: TraZODone HCL 50 MG TABLET PO SCH (20:24)
[2020-01-07] MEDS ORDERED: IBUPROFEN 600 MG TABLET PO PRN (21:15)
[2020-01-07] MEDS ORDERED: PETROLATUM,WHITE 28 GM JELLY TP PRN (21:15)
[2020-01-07] MEDS ORDERED: BACITRACIN 28 GM OINTMENT TP PRN (21:15)
[2020-01-07] MEDS ORDERED: OMEPRAZOLE 20 MG CAPSULE PO PRN (21:15)
[2020-01-07] MEDS ORDERED: ALBUTEROL SULFATE HFA 90 MCG/PUFF 8 GM INHALER IH PRN (21:15)
[2020-01-07] MEDS ORDERED: ACETAMINOPHEN 325 MG TABLET PO PRN (21:15)
[2020-01-07] MEDS ORDERED: DOCUSATE SODIUM 100 MG CAPSULE PO PRN (21:15)
[2020-01-07] MEDS ORDERED: ONDANSETRON HCL 4 MG TABLET PO PRN (21:15)
[2020-01-07] MEDS ORDERED: MAG HYDROX/AL HYDROX/SIMETH ES 30 ML SUSPENSION UDCUP PO PRN (21:15)
[2020-01-07] MEDS ORDERED: BENZOCAINE/MENTHOL LOZENGE PO PRN (21:15)
[2020-01-07] MEDS ORDERED: LOPERAMIDE HCL 2 MG CAPSULE PO PRN (21:15)
[2020-01-07] MEDS ORDERED: MAGNESIUM HYDROXIDE SUSPENSION 30 ML UDCUP PO PRN (21:15)
[2020-01-07] MEDS ORDERED: CloNIDine HCL 0.1 MG TABLET PO PRN (21:15)
[2020-01-08 00:43] VITALS: BP 112/78
[2020-01-08 08:10] VITALS: BP 127/69
[2020-01-08] MEDS: LevETIRAcetam 500 MG TABLET PO SCH (08:35)
[2020-01-08] MEDS: GABAPENTIN 300 MG CAPSULE PO SCH ×4 (08:35→20:50)
[2020-01-08] MEDS: ATENOLOL 100 MG TABLET PO SCH (08:36)
[2020-01-08 16:25] VITALS: BP 113/75
[2020-01-08] MEDS: TraZODone HCL 50 MG TABLET PO SCH (20:50)
[2020-01-09 00:54] VITALS: BP 153/100
[2020-01-09 06:06] VITALS: BP 153/100
[2020-01-09 08:07] VITALS: BP 123/76
[2020-01-09] MEDS: LevETIRAcetam 500 MG TABLET PO SCH (10:25)
[2020-01-09] MEDS: ATENOLOL 100 MG TABLET PO SCH (10:25)
[2020-01-09] MEDS: GABAPENTIN 300 MG CAPSULE PO SCH ×4 (10:25→21:20)
[2020-01-09 16:12] VITALS: BP 120/71
[2020-01-09] MEDS: TraZODone HCL 50 MG TABLET PO SCH (21:00)
[2020-01-09] MEDS: TraZODone HCL 100 MG TABLET PO PRN (21:20)
[2020-01-10 00:22] VITALS: BP 121/77
[2020-01-10] MEDS: ZOLPIDEM TARTRATE 10 MG TABLET PO PRN (00:38)
[2020-01-10 08:07] VITALS: BP 120/69
[2020-01-10] MEDS: GABAPENTIN 300 MG CAPSULE PO SCH ×4 (09:26→21:14)
[2020-01-10] MEDS: LevETIRAcetam 500 MG TABLET PO SCH (09:26)
[2020-01-10] MEDS: ATENOLOL 100 MG TABLET PO SCH (09:26)
[2020-01-10 16:15] VITALS: BP 137/77
[2020-01-10] MEDS: TraZODone HCL 50 MG TABLET PO SCH (21:14)
[2020-01-11 00:43] VITALS: BP 114/71
[2020-01-11] MEDS: ZOLPIDEM TARTRATE 10 MG TABLET PO PRN (03:05)
[2020-01-11] MEDS: ATENOLOL 100 MG TABLET PO SCH (08:19)
[2020-01-11] MEDS: GABAPENTIN 300 MG CAPSULE PO SCH ×4 (08:19→20:14)
[2020-01-11] MEDS: LevETIRAcetam 500 MG TABLET PO SCH (08:19)
[2020-01-11 08:31] VITALS: BP 100/60
[2020-01-11 16:05] VITALS: BP 120/73
[2020-01-11] MEDS: TraZODone HCL 50 MG TABLET PO SCH (20:14)
[2020-01-12 05:39] VITALS: BP 125/70
[2020-01-12] MEDS: LevETIRAcetam 500 MG TABLET PO SCH (08:32)
[2020-01-12] MEDS: FOLIC ACID 1 MG TABLET PO SCH (08:32)
[2020-01-12] MEDS: ATENOLOL 100 MG TABLET PO SCH (08:32)
[2020-01-12] MEDS: GABAPENTIN 300 MG CAPSULE PO SCH ×4 (08:32→20:11)
[2020-01-12] MEDS: THIAMINE 100 MG TABLET PO SCH (08:34)
[2020-01-12 09:14] VITALS: BP 116/74
[2020-01-12 16:14] VITALS: BP 105/69
[2020-01-12] MEDS: TraZODone HCL 50 MG TABLET PO SCH (20:11)
[2020-01-12] MEDS: TraZODone HCL 100 MG TABLET PO PRN (22:36)
[2020-01-13 08:12] VITALS: BP 123/71
[2020-01-13] MEDS: FOLIC ACID 1 MG TABLET PO SCH (08:15)
[2020-01-13] MEDS: GABAPENTIN 300 MG CAPSULE PO SCH ×3 (08:15→16:08)
[2020-01-13] MEDS: THIAMINE 100 MG TABLET PO SCH (08:15)
[2020-01-13] MEDS: ATENOLOL 100 MG TABLET PO SCH (08:15)
[2020-01-13] MEDS: LevETIRAcetam 500 MG TABLET PO SCH (08:15)
[2020-01-13] MEDS ORDERED: FOLI-130 PO (13:58)
[2020-01-13] MEDS ORDERED: GABA-1181 PO (13:58)
[2020-01-13] MEDS ORDERED: TRAZ-252 PO (13:58)
[2020-01-13 16:06] VITALS: BP 109/69
== END 2020-01-13 18:00 | disposition home or self-care (01) | DRG 751 ==
LOC: EMS 00:08 → B2S 04:24
PROVIDERS: ADMIT Psychiatry & Neurology Psychiatry; ATTEND Psychiatry & Neurology Psychiatry
DX: F32.2 Major depressive disorder, single episode, severe without psychotic features (principal); E78.5 Hyperlipidemia, unspecified; F20.9 Schizophrenia, unspecified; G47.00 Insomnia, unspecified; I10 Essential (primary) hypertension; R45.851 Suicidal ideations; F10.10 Alcohol abuse, uncomplicated; F41.9 Anxiety disorder, unspecified; M54.9 Dorsalgia, unspecified; K59.00 Constipation, unspecified; G40.909 Epilepsy, unspecified, not intractable, without status epilepticus; F19.10 Other psychoactive substance abuse, uncomplicated; G89.29 Other chronic pain; Z86.73 Personal history of transient ischemic attack (TIA), and cerebral infarction without residual deficits; Z89.512 Acquired absence of left leg below knee; Z91.19 Patient's noncompliance with other medical treatment and regimen; Z72.0 Tobacco use; Z03.818 Encounter for observation for suspected exposure to other biological agents ruled out
CPT/HCPCS: 87081; 87426; G0480

== ENCOUNTER 2020-02-23 23:40 | Inpatient (IN) | payer MEDICAID ==
[~2020-02-23] VITALS: Ht 177.8 cm; Wt 69.7 kg
[~2020-02-23 23:40] MED LIST changes: +FOLI-130 PO; +GABA-1181 PO; -GABA-1201 PO; -LORA-1001 PO; -OLAN5TAB2 PO; -SERT100T12 PO; -TRAZ-257 PO
[2020-02-24 00:48] LABS: COVID AG,FIA SOURCE NASOPHARYNGEAL
[2020-02-24 00:55] LABS: ANION GAP 14 mmol/L (8-16); CALCIUM, TOTAL 8.5 mg/dL (8.8-10.5); CARBON DIOXIDE 25 mmol/L (22-29); CHLORIDE 105 mmol/L (98-107); CREATININE 0.83 mg/dL (0.60-1.30); GLOMERULAR FILTR. RATE CALC > 60 mL/min (>60); GLUCOSE,RANDOM 86 mg/dL (70-110); POTASSIUM 4.1 mmol/L (3.5-5.1); SODIUM SERUM 144 mmol/L (136-145); UREA NITROGEN, BLOOD 12 mg/dL (7-18)
[2020-02-24 01:01] LABS: ALANINE AMINOTRANSFERASE 19 U/L (12-78); ALBUMIN 3.4 g/dL (3.4-5.0); ALKALINE PHOSPHATASE 81 U/L (46-116); ASPARTATE AMINOTRANSFERASE 23 U/L (15-37); BILIRUBIN,TOTAL 0.4 mg/dL (0.1-1.0); TOTAL PROTEIN, SERUM 6.6 g/dL (6.4-8.2)
[2020-02-24 01:12] LABS: AMPHET/METH SCREEN,URINE NEGATIVE (NEGATIVE); BARBITURATE SCREEN, URINE NEGATIVE (NEGATIVE); BENZODIAZEPINES SCREEN,URINE POSITIVE (NEGATIVE); CANNABINOID SCREEN,URINE NEGATIVE (NEGATIVE); COCAINE SCREEN,URINE NEGATIVE (NEGATIVE); METHADONE SCREEN, URINE NEGATIVE (NEGATIVE); OPIATE SCREEN,URINE NEGATIVE (NEGATIVE)
[2020-02-24 01:15] LABS: PHENCYCLIDINE SCREEN,URINE NEGATIVE (NEGATIVE)
[2020-02-24 01:31] LABS: BASOPHILS % (AUTO) 0.8 % (0.0-2.0); EOSINOPHILS % (AUTO) 1.3 % (1.0-6.0); HEMATOCRIT 40.5 % (41-53); HEMOGLOBIN 13.6 g/dL (13.5-17.5); LYMPHOCYTES # (AUTO) 1.9 K/uL (1.0-4.8); LYMPHOCYTES % (AUTO) 25.2 % (22.0-44.0); MEAN CORPUSCULAR HEMOGLOBIN 30.2 pg (26.0-34.0); MEAN CORPUSCULAR HGB CONC 33.5 G/dL (31.0-37.0); MEAN CORPUSCULAR VOLUME 90 fL (80-100); MONOCYTES # (AUTO) 0.6 K/uL (0.1-1.0); MONOCYTES % (AUTO) 7.8 % (2.0-9.0); NEUTROPHILS # (AUTO) 4.9 K/uL (1.8-7.7); NEUTROPHILS % (AUTO) 64.9 % (40.0-70.0); PLATELET COUNT (AUTO) 215 K/uL (150-450); RED CELL DISTRIBUTION WIDTH 13.8 % (11.5-14.5)
[2020-02-24] MEDS ORDERED: MAGNESIUM HYDROXIDE SUSPENSION 30 ML UDCUP PO PRN ×2 (01:45→19:00)
[2020-02-24] MEDS ORDERED: ZOLPIDEM TARTRATE 10 MG TABLET PO PRN (01:45)
[2020-02-24 04:34] LABS: APPEARANCE,URINE CLEAR (CLEAR); BILIRUBIN,URINE NEGATIVE (NEGATIVE); GLUCOSE, URINE (UA) NEGATIVE (NEGATIVE); KETONES,URINE TRACE mg/dL (NEGATIVE); LEUKOCYTE ESTERASE ,URINE NEGATIVE (NEGATIVE); NITRATE,URINE NEGATIVE (NEGATIVE); OCCULT BLOOD,URINE NEGATIVE (NEGATIVE); PROTEIN,URINE NEGATIVE (NEGATIVE); UROBILINOGEN,URINE 0.2 mg/dL (<=1.0)
[2020-02-24] MEDS: LORazepam 2 MG TABLET PO PRN ×2 (10:13→14:51)
[2020-02-24] MEDS: HALOPERIDOL 5 MG TABLET PO PRN (16:45)
[2020-02-24 17:45] VITALS: BP 140/76
[2020-02-24] MEDS ORDERED: ACETAMINOPHEN 325 MG TABLET PO PRN (19:00)
[2020-02-24] MEDS ORDERED: DOCUSATE SODIUM 100 MG CAPSULE PO PRN (19:00)
[2020-02-24] MEDS ORDERED: OMEPRAZOLE 20 MG CAPSULE PO PRN (19:00)
[2020-02-24] MEDS ORDERED: PETROLATUM,WHITE 28 GM JELLY TP PRN (19:00)
[2020-02-24] MEDS ORDERED: BENZOCAINE/MENTHOL LOZENGE PO PRN (19:00)
[2020-02-24] MEDS ORDERED: LOPERAMIDE HCL 2 MG CAPSULE PO PRN (19:00)
[2020-02-24] MEDS ORDERED: MAG HYDROX/AL HYDROX/SIMETH ES 30 ML SUSPENSION UDCUP PO PRN (19:00)
[2020-02-24] MEDS ORDERED: BACITRACIN 28 GM OINTMENT TP PRN (19:00)
[2020-02-24] MEDS ORDERED: ONDANSETRON HCL 4 MG TABLET PO PRN (19:00)
[2020-02-24] MEDS ORDERED: CloNIDine HCL 0.1 MG TABLET PO PRN (19:00)
[2020-02-24] MEDS ORDERED: PNEUMOCOCCAL VACCINE POLYVALENT 0.5 ML VIAL [PPSV23] IM ONE (22:00)
[2020-02-25 05:20] VITALS: BP 140/72
[2020-02-25] MEDS: LORazepam 2 MG TABLET PO PRN ×3 (05:20→14:32)
[2020-02-25 07:13] LABS: CHOL/HDL RATIO 2.1 (4.2-7.3)
[2020-02-25 08:05] VITALS: BP 147/96
[2020-02-25] MEDS: IBUPROFEN 600 MG TABLET PO PRN (08:10)
[2020-02-25] MEDS: HALOPERIDOL 5 MG TABLET PO PRN ×2 (08:10→12:22)
[2020-02-25] MEDS: GABAPENTIN 300 MG CAPSULE PO SCH ×4 (08:11→20:45)
[2020-02-25 16:00] VITALS: BP 136/87
[2020-02-25] MEDS: TraZODone HCL 50 MG TABLET PO SCH (20:45)
[2020-02-26] MEDS: LORazepam 2 MG TABLET PO PRN ×4 (07:27→16:14)
[2020-02-26 08:00] VITALS: BP 132/83
[2020-02-26] MEDS: HALOPERIDOL 5 MG TABLET PO PRN (08:54)
[2020-02-26] MEDS: THIAMINE 100 MG TABLET PO SCH (08:54)
[2020-02-26] MEDS: GABAPENTIN 300 MG CAPSULE PO SCH ×4 (08:54→21:11)
[2020-02-26] MEDS: FOLIC ACID 1 MG TABLET PO SCH (08:55)
[2020-02-26] MEDS: IBUPROFEN 600 MG TABLET PO PRN (10:17)
[2020-02-26] MEDS: ALBUTEROL SULFATE HFA 90 MCG/PUFF 8 GM INHALER IH PRN (15:20)
[2020-02-26 16:00] VITALS: BP 136/87
[2020-02-26] MEDS: TraZODone HCL 50 MG TABLET PO SCH (21:11)
[2020-02-27 06:19] VITALS: BP 117/97
[2020-02-27] MEDS: ALBUTEROL SULFATE HFA 90 MCG/PUFF 8 GM INHALER IH PRN ×3 (06:26→18:05)
[2020-02-27] MEDS: IBUPROFEN 600 MG TABLET PO PRN (06:27)
[2020-02-27 08:00] VITALS: BP 156/90
[2020-02-27] MEDS: LORazepam 2 MG TABLET PO PRN (08:12)
[2020-02-27] MEDS: GABAPENTIN 300 MG CAPSULE PO SCH ×4 (08:12→20:15)
[2020-02-27] MEDS: HALOPERIDOL 5 MG TABLET PO PRN (08:12)
[2020-02-27] MEDS: FOLIC ACID 1 MG TABLET PO SCH (08:17)
[2020-02-27] MEDS: THIAMINE 100 MG TABLET PO SCH (08:17)
[2020-02-27 17:45] VITALS: BP 108/75
[2020-02-27] MEDS: TraZODone HCL 50 MG TABLET PO SCH (20:15)
[2020-02-28] MEDS: LORazepam 2 MG TABLET PO PRN ×3 (06:39→11:23)
[2020-02-28] MEDS: FOLIC ACID 1 MG TABLET PO SCH (08:34)
[2020-02-28] MEDS: THIAMINE 100 MG TABLET PO SCH (08:34)
[2020-02-28] MEDS: HALOPERIDOL 5 MG TABLET PO PRN ×2 (08:34→12:20)
[2020-02-28] MEDS: GABAPENTIN 300 MG CAPSULE PO SCH ×4 (08:34→21:27)
[2020-02-28] MEDS: ALBUTEROL SULFATE HFA 90 MCG/PUFF 8 GM INHALER IH PRN (08:35)
[2020-02-28 16:22] VITALS: BP 131/91
[2020-02-28] MEDS: TraZODone HCL 50 MG TABLET PO SCH (21:27)
[2020-02-29 00:55] VITALS: BP 129/91
[2020-02-29] MEDS: IBUPROFEN 600 MG TABLET PO PRN ×2 (00:56→13:30)
[2020-02-29] MEDS: LORazepam 2 MG TABLET PO PRN ×3 (00:56→13:30)
[2020-02-29 08:00] VITALS: BP 120/80
[2020-02-29] MEDS: FOLIC ACID 1 MG TABLET PO SCH (08:20)
[2020-02-29] MEDS: THIAMINE 100 MG TABLET PO SCH (08:21)
[2020-02-29] MEDS: GABAPENTIN 300 MG CAPSULE PO SCH ×4 (08:21→21:17)
[2020-02-29] MEDS: HALOPERIDOL 5 MG TABLET PO PRN ×2 (08:21→13:30)
[2020-02-29 16:00] VITALS: BP 113/76
[2020-02-29] MEDS: ALBUTEROL SULFATE HFA 90 MCG/PUFF 8 GM INHALER IH PRN (17:02)
[2020-02-29] MEDS: TraZODone HCL 50 MG TABLET PO SCH (21:17)
[2020-03-01 00:05] VITALS: BP 132/100
[2020-03-01] MEDS: HALOPERIDOL 5 MG TABLET PO PRN (00:09)
[2020-03-01] MEDS: LORazepam 2 MG TABLET PO PRN ×3 (00:10→12:41)
[2020-03-01] MEDS: GABAPENTIN 300 MG CAPSULE PO SCH ×2 (08:12→12:40)
[2020-03-01] MEDS: FOLIC ACID 1 MG TABLET PO SCH (08:12)
[2020-03-01] MEDS: THIAMINE 100 MG TABLET PO SCH (08:13)
[2020-03-01 08:58] VITALS: BP 114/74
[2020-03-01] MEDS ORDERED: THIA100T80 PO (13:17)
[2020-03-01] MEDS ORDERED: LevETIRAcetam 500 MG TABLET PO SCH (17:00)
== END 2020-03-01 14:30 | disposition home or self-care (01) | DRG 751 ==
LOC: EMS 23:41 → 3EI 02-24 01:37
PROVIDERS: ADMIT Psychiatry & Neurology Psychiatry; ATTEND Psychiatry & Neurology Psychiatry
DX: F33.2 Major depressive disorder, recurrent severe without psychotic features (principal); E78.5 Hyperlipidemia, unspecified; F20.9 Schizophrenia, unspecified; I10 Essential (primary) hypertension; F17.200 Nicotine dependence, unspecified, uncomplicated; J45.909 Unspecified asthma, uncomplicated; R45.851 Suicidal ideations; Z20.828 Contact with and (suspected) exposure to other viral communicable diseases; Z86.73 Personal history of transient ischemic attack (TIA), and cerebral infarction without residual deficits; Z89.512 Acquired absence of left leg below knee; Z28.82 Immunization not carried out because of caregiver refusal
CPT/HCPCS: 87426; G0480; J3535

== ENCOUNTER 2020-03-04 09:34 | Emergency (ER) | payer MEDICAID, OTHER ==
[~2020-03-04] VITALS: Ht 175.3 cm; Wt 77.3 kg
[~2020-03-04 09:34] MED LIST changes: -ATEN100T92 PO; +THIA100T80 PO
[2020-03-04] MEDS ORDERED: LevETIRAcetam 1,000 MG in DEXTROSE 5%-WATER 100 ML IV ONE (10:15)
[2020-03-04 11:04] LABS: BASOPHILS % (AUTO) 0.4 % (0.0-2.0); EOSINOPHILS % (AUTO) 0.3 % (1.0-6.0); HEMATOCRIT 44.8 % (41-53); HEMOGLOBIN 15.2 g/dL (13.5-17.5); LYMPHOCYTES # (AUTO) 1.2 K/uL (1.0-4.8); LYMPHOCYTES % (AUTO) 14.8 % (22.0-44.0); MEAN CORPUSCULAR HEMOGLOBIN 30.2 pg (26.0-34.0); MEAN CORPUSCULAR HGB CONC 33.8 G/dL (31.0-37.0); MEAN CORPUSCULAR VOLUME 89 fL (80-100); MONOCYTES # (AUTO) 0.9 K/uL (0.1-1.0); MONOCYTES % (AUTO) 11.6 % (2.0-9.0); NEUTROPHILS # (AUTO) 5.9 K/uL (1.8-7.7); NEUTROPHILS % (AUTO) 72.9 % (40.0-70.0); PLATELET COUNT (AUTO) 281 K/uL (150-450); RED BLOOD CELL COUNT(AUTO) 5.02 MIL/uL (4.50-5.90); RED CELL DISTRIBUTION WIDTH 13.7 % (11.5-14.5)
[2020-03-04 11:14] VITALS: BP 137/89
[2020-03-04 11:24] LABS: ANION GAP 13 mmol/L (8-16); CALCIUM, TOTAL 8.8 mg/dL (8.8-10.5); CARBON DIOXIDE 26 mmol/L (22-29); CHLORIDE 97 mmol/L (98-107); GLOMERULAR FILTR. RATE CALC > 60 mL/min (>60); GLUCOSE,RANDOM 111 mg/dL (70-110); POTASSIUM 3.6 mmol/L (3.5-5.1); SODIUM SERUM 136 mmol/L (136-145); UREA NITROGEN, BLOOD 19 mg/dL (7-18)
[2020-03-04 11:28] LABS: ALANINE AMINOTRANSFERASE 31 U/L (12-78); ALBUMIN 3.8 g/dL (3.4-5.0); ALKALINE PHOSPHATASE 105 U/L (46-116); ASPARTATE AMINOTRANSFERASE 33 U/L (15-37); BILIRUBIN,TOTAL 0.8 mg/dL (0.1-1.0); TOTAL PROTEIN, SERUM 7.9 g/dL (6.4-8.2)
== END 2020-03-04 11:20 | disposition left against medical advice (07) ==
LOC: EMS 09:34
DX: G40.909 Epilepsy, unspecified, not intractable, without status epilepticus (principal); F10.10 Alcohol abuse, uncomplicated; J45.909 Unspecified asthma, uncomplicated; F32.9 Major depressive disorder, single episode, unspecified; F41.9 Anxiety disorder, unspecified; G89.29 Other chronic pain; Z86.73 Personal history of transient ischemic attack (TIA), and cerebral infarction without residual deficits; Y90.4 Blood alcohol level of 80-99 mg/100 ml
CPT/HCPCS: 36415; 80053; 85025; 99283; G0480; J0712; J7060

== ENCOUNTER 2020-04-13 15:21 | Emergency (ER) | payer OTHER ==
[~2020-04-13] VITALS: Ht 177.8 cm; Wt 70.0 kg
[2020-04-13 16:39] LABS: BASOPHILS % (AUTO) 0.9 % (0.0-2.0); EOSINOPHILS % (AUTO) 0.5 % (1.0-6.0); HEMATOCRIT 41.2 % (41-53); HEMOGLOBIN 13.7 g/dL (13.5-17.5); LYMPHOCYTES # (AUTO) 1.6 K/uL (1.0-4.8); LYMPHOCYTES % (AUTO) 26.2 % (22.0-44.0); MEAN CORPUSCULAR HEMOGLOBIN 29.1 pg (26.0-34.0); MEAN CORPUSCULAR HGB CONC 33.4 G/dL (31.0-37.0); MEAN CORPUSCULAR VOLUME 87 fL (80-100); MONOCYTES # (AUTO) 0.4 K/uL (0.1-1.0); MONOCYTES % (AUTO) 6.9 % (2.0-9.0); NEUTROPHILS % (AUTO) 65.5 % (40.0-70.0); PLATELET COUNT (AUTO) 245 K/uL (150-450); RED BLOOD CELL COUNT(AUTO) 4.73 MIL/uL (4.50-5.90); RED CELL DISTRIBUTION WIDTH 13.2 % (11.5-14.5)
[2020-04-13 16:50] LABS: ANION GAP 13 mmol/L (8-16); CARBON DIOXIDE 23 mmol/L (22-29); CHLORIDE 102 mmol/L (98-107); GLOMERULAR FILTR. RATE CALC > 60 mL/min (>60); GLUCOSE,RANDOM 80 mg/dL (70-110); POTASSIUM 4.5 mmol/L (3.5-5.1); SODIUM SERUM 138 mmol/L (136-145); UREA NITROGEN, BLOOD 9 mg/dL (7-18)
[2020-04-13 16:55] LABS: ALANINE AMINOTRANSFERASE 25 U/L (12-78); ALBUMIN 3.9 g/dL (3.4-5.0); ALKALINE PHOSPHATASE 77 U/L (46-116); ASPARTATE AMINOTRANSFERASE 34 U/L (15-37); BILIRUBIN,TOTAL 0.5 mg/dL (0.1-1.0); TOTAL PROTEIN, SERUM 8.2 g/dL (6.4-8.2)
[2020-04-13 16:55] LABS: AMPHET/METH SCREEN,URINE NEGATIVE (NEGATIVE); BARBITURATE SCREEN, URINE NEGATIVE (NEGATIVE); BENZODIAZEPINES SCREEN,URINE NEGATIVE (NEGATIVE); CANNABINOID SCREEN,URINE NEGATIVE (NEGATIVE); COCAINE SCREEN,URINE NEGATIVE (NEGATIVE); METHADONE SCREEN, URINE NEGATIVE (NEGATIVE); OPIATE SCREEN,URINE POSITIVE (NEGATIVE); PHENCYCLIDINE SCREEN,URINE NEGATIVE (NEGATIVE)
[2020-04-13 19:00] VITALS: BP 121/66
== END 2020-04-13 19:15 | disposition home or self-care (01) ==
LOC: EMS 15:21
DX: F10.129 Alcohol abuse with intoxication, unspecified (principal); F41.9 Anxiety disorder, unspecified; J45.909 Unspecified asthma, uncomplicated; F32.9 Major depressive disorder, single episode, unspecified; Z59.0 Homelessness; Y90.6 Blood alcohol level of 120-199 mg/100 ml
CPT/HCPCS: 36415; 80053; 80307; 85025; 99283; G0480